=== PATIENT | male | born 1945 | race Caucasian/White ===

== ENCOUNTER → 2023-08-26 | Outpatient (CLI) | payer OTHER, SELFPAY ==
--- NOTE | 2023-08-26 06:52 | ECHOD_ITS ---
Reason For Study: AFIB Procedure This was a 2D Doppler, Color Flow transthoracic echocardiogram. Exam performed in department. Left Ventricle Normal LV size. Left ventricular systolic function is normal. The estimated ejection fraction is 55 %. No regional wall motion abnormalities noted. Right Ventricle Normal RV size. Normal systolic function. Atria Normal left atrium. Normal right atrium. Mitral Valve Normal mitral valve. Tricuspid Valve Normal tricuspid valve. Mild (1+) tricuspid valve insufficiency. Pulmonary artery systolic pressure is 35 mmHg. Aortic Valve Trisinus/trileaflet aortic valve. Mild (1+) aortic valve insufficiency. Pulmonic Valve Normal pulmonic valve. Great Vessels Normal aortic root. The pulmonary artery is normal size. Normal inferior vena cava. Pericardium/Pleural No pericardial effusion. MMode/2D Measurements & Calculations LVIDd: 4.1 cm IVSd: 1.1 cm Ao root diam: 3.7 cm LVIDs: 2.9 cm LVPWd: 1.3 cm RVDd: 3.9 cm FS: 29.2 % LAV(MOD-bp): 56.5 ml LVAd ap4: 20.6 cm2 SV(MOD-sp4): 25.7 ml LAV(MOD-bp) Indexed: 27.7 ml/m2 LVLd ap4: 7.8 cm LAV(MOD-sp2): 69.7 ml EDV(MOD-sp4): 46.9 ml LAV(MOD-sp4): 47.1 ml EDV(sp4-el): 46.4 ml LVAs ap4: 12.1 cm2 LVLs ap4: 5.8 cm ESV(MOD-sp4): 21.2 ml ESV(sp4-el): 21.4 ml EF(MOD-sp4): 54.7 % EF(sp4-el): 53.9 % SV(sp4-el): 25.0 ml LA A4 area: 19.4 cm2 LA dimension(2D): 4.3 cm RA A4 area: 22.0 cm2 TAPSE: 1.8 cm Doppler Measurements & Calculations MV E max charlie: 87.2 cm/sec Ao V2 max: 127.0 cm/sec LV V1 max: 110.3 cm/sec Ao max P.5 mmHg LV V1 max P.9 mmHg Ao V2 mean: 88.6 cm/sec LV V1 mean P.8 mmHg Ao mean P.6 mmHg LV V1 mean: 77.9 cm/sec Ao V2 VTI: 28.0 cm LV V1 VTI: 24.4 cm AV (velocity ratio): 0.87 PA V2 max: 111.1 cm/sec TR max charlie: 278.0 cm/sec PA V2 mean: 75.4 cm/sec TR max P.9 mmHg ECHO/Echo Complete Interpretation Summary Normal LV size. Left ventricular systolic function is normal. The estimated ejection fraction is 55 %. Mild (1+) aortic valve insufficiency. Mild (1+) tricuspid valve insufficiency. Pulmonary artery systolic pressure is 35 mmHg. Ordering Physician: Daren Magaña Referring Physician: Daren Magaña Performed By: Gabby Cabrera RCS
--- NOTE | 2023-08-26 14:52 | STRESSREP ---
Stress Test Report Pharmacologic myocardial perfusion stress test. 77-year-old male with a history of atrial fibrillation for preop evaluation Resting EKG demonstrates atrial fibrillation with a rate of 78 bpm. Resting blood pressure is 130/82 mmHg. 0.4 mg of regadenoson was infused per usual protocol followed by rapid intravenous saline flush injection. Continuous EKG monitoring was performed. The maximum heart rate was 105 bpm which was 85% of max impacted heart rate the maximum workload was 1 metabolic equivalent. At rest there were no ST or T wave changes noted to suggest ischemia and at peak infusion nonspecific ST changes were noted which did not meet the criteria for ischemia. No clinical angina is noted. The final blood pressure was 122/70 mmHg. Myocardial perfusion protocol. 11.8 mCi of technetium 99m sestamibi was injected at rest. 0.4 mg of regadenoson was infused per usual protocol. At peak infusion 34.5 mCi of technetium 99m sestamibi was injected stress images were obtained stress and rest images were reconstructed and compared in the short axis vertical long and horizontal long axis. Gated images were also obtained. Perfusion SPECT analysis: Review of the stress images demonstrate normal uptake of tracer noted in all areas of the myocardium. The resting images similar demonstrated normal uptake of tracer noted in all areas of the myocardium. No areas of reversibility are noted to suggest ischemia and no previous infarct is noted. Gated SPECT analysis: The gated ejection fraction is 60%. Conclusion: Normal pharmacologic myocardial perfusion stress test. Preserved ejection fraction.
== END | disposition home or self-care (01) ==
PROVIDERS: Referring Provider Internal Medicine Cardiovascular Disease; Visit Provider Internal Medicine Cardiovascular Disease
DX: Z01.810 Encounter for preprocedural cardiovascular examination (principal); I48.91 Unspecified atrial fibrillation; I48.92 Unspecified atrial flutter; I36.1 Nonrheumatic tricuspid (valve) insufficiency; I35.1 Nonrheumatic aortic (valve) insufficiency
CPT/HCPCS: 78452; 93017; 93306; A9500; A4216; J2785

== ENCOUNTER 2024-04-06 07:05 | Observation (INO) | payer OTHER, SELFPAY ==
[2024-03-17 09:56] LABS: Absolute Lymphocyte Count 1.78 X10^3/uL (0.83-4.51); Absolute Neutrophil Count 3.3 X10^3/uL (2.0-7.7); Basophil# 0.02 X10^3/uL; Basophil% 0.3 % (0-1); Eosinophil# 0.16 X10^3/uL; Eosinophils% 2.7 % (0-5); Hematocrit 43.6 % (40-54); Hemoglobin 14.3 g/dL (13.0-16.5); Lymphocyte # 1.78 X10^3/ul (0.83-4.51); Mean Corp Hgb Conc 32.8 g/dL (32-36); Mean Corpuscular Hgb 30.6 pg (27.0-32.0); Mean Corpuscular Volume 93.2 fL (80-94); Mean Platelet Vol. 10.5 fl (6.2-12.0); Monocyte# 0.67 X10^3/uL; Monocyte% 11.3 % (0-10); NRBC Flagged by Analyzer 0 % (0-5); Neutrophil % 55.5 % (47-70); Platelet Count 185 K/mm3 (150-450); RBC Distribution Width CV 12.8 % (11.6-14.6); RBC Distribution Width SD 43.8 fl (35.1-43.9); Red Blood Count 4.68 M/mm3 (4.6-6.2); White Blood Count 5.9 K/mm3 (4.4-11.0)
[2024-03-17 10:31] LABS: Albumin, Serum 3.6 g/dL (3.2-5.0); Anion Gap 3 (5-15); BUN 15 mg/dL (7-18); BUN/Creat Ratio 11.9 RATIO (10-20); Chloride 106 mmol/L (98-107); Creatinine, Serum 1.26 mg/dL (0.70-1.30); EST Glomerular Filtration Rate 59 mL/min (>60); Est Glom Filt Rate - Afr Amer 72 mL/min (>60); Glucose 99 mg/dL (74-106); Potassium 4.1 mmol/L (3.5-5.1); Sodium Level 138 mmol/L (136-145)
[2024-03-17 10:56] LABS: Magnesium 2.4 mg/dL (1.6-2.6)
--- NOTE | 2024-04-01 12:35 | PCM.HP.BLA ---
History and Physical History and Physical Patient Name: Ge Medina : 1945From:? DERIK CORREA PA-C DATE OF PRE-OPERATIVE EXAM: 04/01/2024 DATE OF SURGERY:? 04/06/2024 SCHEDULED PROCEDURE:? Direct anterior left total hip arthroplasty HISTORY OF PRESENT ILLNESS: Preoperative history and physical exam was performed on April 01, 2024.? This is a 78-year-old male who has had ongoing pain with his left hip since 2018.? Pain is located in the left groin and anterior part of his thigh.? Patient denies any numbness and tingling.? His pain has been intermittent.? Pain is increased with walking and going up and down stairs.? Patient has difficulty with activities of daily living including putting on his socks and shoes.? He has been using a cane.? Patient states stairs are challenging due to the pain.? He has difficulty getting in and out of cars.? He does have history of a previous femur fracture in the 1970s which initially was treated with delmer and bone grafting.? The hardware was removed that same year of surgery.? Patient has tried conservative measures including Tylenol and Advil with no relief.? 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 Cardiology recommended stopping the Eliquis 2 days prior to surgery.? He has medical history pertinent for atrial fibrillation, hypertension, hypercholesterolemia, prediabetes.? He denies past history of DVT or pulmonary embolism.? No recent chest pain, shortness of breath, fevers chills, or recent infections.? After failing conservative measures and discussing all treatment options was Dr. Colin Caro, the patient does wish to proceed with a direct anterior left total hip arthroplasty. REVIEW OF SYSTEMS: Review Of Systems: Constitutional: Denies change in appetite, fever and weight change. Cardiovasular: Reports irregular heartbeat, but denies chest pain and heart murmur. Respiratory: Denies cough, pneumonia, shortness of breath, tuberculosis and wheezing. Gastrointestinal: Denies constipation, diarrhea, heartburn, nausea, rectal itching, bloody stools and vomiting. Musculoskeletal: Reports gait disturbance, pain, trouble walking and weakness, but denies leg swelling. Skin: Denies Raynaud's, history of shingles and tattoo. Neurological: Denies ambulatory dysfunction, dizziness, numbness/tingling and tremor. Psychiatric: Denies anxiety, insomnia and stress. Hematologic/Lymphatic: Denies anemia, bleeding/bruising tendency and past transfusion. Reviewed and updated. PAST MEDICAL HISTORY: Advance Care Plan: No Advance Directives Effective Date: 10/16/2023 Past Medical History: Medical Problems: AFib, Arthritis, High Blood Pressure, Hypercholesterolemia prediabetes - history of lumbar degenerative disc disease Accidents: Fracture - LT FEMUR 1969 Surgical Hx: Cataracts - JACKLYN Open Reduction Internal Fixation left femur + hardware removal later - (1969) Anesthesia Complications: Demerol - Maybe Assistive Devices: Cane Reviewed and updated. SOCIAL HISTORY: Social History: Marital: .Occupation: Retired.Work Status: Retired.Hand Dominance: Right-handed. Personal Habits:? Cigarette Use: Former.Smokeless Tobacco: Never Used Smokeless Tobacco.E-Cigarette Use: Never used.Alcohol: Occasionally.Drug Use: Denies Use.Enjoy Exercising: Exercises 1-3 X/Week. Reviewed and updated. VITALS: Ht: 70.5 Wt: 186lb Wt k.370 BMI: 26.3 BP: 128/80 Pulse: 71 Resp: 17 T: 97.6 T: 36.4C Pain Level: 4 O2SatR: 100 ALLERGIES: Meperidine Demerol MEDICATIONS: Metoprolol Succinate ER 50 mg 1 by mouth every day, Amlodipine Besylate 5 mg 1 by mouth every day, Lisinopril 20 mg 1 by mouth every day, Rosuvastatin Calcium 10 mg on saturday, saturday, and saturday, Vitamin D (Cholecalciferol) 50 mcg (1999) 1 tab, 1x/day, Multivitamin? take one(1) tablet daily., Eliquis 5 mg twice a day PRE-OP EXAM: General appearance:NORMAL? Other: Eyes: Conjunctivae and lids: NORMAL? Pupils: ERR Ears, Nose, Mouth, and Throat: NORMAL? Other: Inspection of lips, teeth and gums: NORMAL?? Other: Neck: Examination of neck: no masses noted. Respiratory: Assessment of respiratory effort: NORMAL?? Other: ? Auscultation of lungs: clear to auscultation no wheezes, rhonchi or rales. Cardiovascular:? Auscultation of heart: Irregular irregular rhythm consistent with atrial fibrillation PHYSICAL EXAMINATION: On exam patient does walk with an antalgic gait with use of cane.? Patient's left hip is without erythema.? Tenderness to palpation over the anterior and lateral thigh.? He does complain of groin pain with range of motion.? Range of motion: 45 flexion with pain.? He does have 10 flexion contracture.? Internal rotation to neutral and external rotation 20.? Strength 3/5 left hip secondary to pain.? Sensation intact to light touch.? Leg lengths are equal. IMAGING STUDIES: Previous x-rays of the left hip reveal severe osteoarthritis with subchondral cyst formation with femoral head collapse and flattening of the femoral head.? Large marginal osteophytes appreciated.? Patient also has right hip joint space narrowing with severe osteoarthritis.? No lytic or blastic lesions. IMPRESSION: 1.? Severe left hip osteoarthritis 2.? Severe right hip osteoarthritis 3.? Hypertension 4.? Atrial fibrillation: Currently on Eliquis 5.? Hypercholesteremia 6.? Prediabetes 7.? Overweight with BMI 26.3 PLAN: Dr. Colin Caro did discuss and review with the patient all treatment options including surgical versus nonsurgical options.? Patient does wish to proceed with the above-stated procedure.? Potential risks, benefits, and complications of the procedure were discussed in detail including but not limited to , infection, nerve and blood vessel damage, persistent pain, numbness, tingling, paresthesias, blood clot, pulmonary embolism, and requirement for possible further surgery.? The patient expressed full understanding and has no further questions for the doctor.? Patient does agree to proceed with the above-stated procedure and has signed the surgery consent form. POST-OP MEDICATION PLAN: Pain Medications:? Postoperative pain regimen will be initiated by Dr. Colin Caro in the hospital.? Patient does have a walker that he will bring to the hospital.? Clearances have been obtained from primary care provider and cardiology. DVT Prophylaxis: Recommended patient stop the Eliquis 2 days prior to surgery.? Eliquis 5 mg twice daily will be resumed on postoperative day #1.? This will cover him for DVT prophylaxis. This dictation was created using voice recognition software. Phonetic and/or grammatical errors may exist. ___? I have re-examined the patient.? There are no clinical changes since date of exam. ___? See progress notes for changes. ___? Dictated on admission Date: ? Time: Signature:
[2024-04-06] VITALS (13 sets, daily range): BP systolic 101–134; BP diastolic 57–81; PULSE 65–119; RESP 14–18; TEMP 36.1–37; O2SAT 94–100; BMI 26.2
--- NOTE | 2024-04-06 07:05 | PRE.ANES_ITS ---
ASA Classification* ASA Classification ASA Classification: 3 Assessment & Plan Anesthesia* Anesthesia Assessment Anesthesia Assessment: Discussed sedation and/or anesthesia options, risks, benefits, and alternatives with patient/parents/legal guardian/POA. Questions invited. The patient/parents/legal guardian/POA seems to understand and agrees to proceed with anesthesia plan. Reviewed the physical assessment, medical history, allergy history and patient home medications list prior to surgery/procedure/anesthetic and documented any changes. Performed airway and anesthesia risk assessments. Anesthesia Type Anesthesia Type: General (Eliquis 60 hours ago) Anesthesia Focused Assessment* Airway Assessment Mouth opens: >3 cm Mallampati Score: II Focused Labs Anesthesia Preop lab: CBC WBC 5.9 K/mm3 (4.4-11.0) 03/17/24 09:27 RBC 4.68 M/mm3 (4.6-6.2) 03/17/24 09:27 Hgb 14.3 g/dL (13.0-16.5) 03/17/24 09:27 Hct 43.6 % (40-54) 03/17/24 09:27 Plt Count 185 K/mm3 (150-450) 03/17/24 09:27 CHEMISTRY Potassium 4.1 mmol/L (3.5-5.1) 03/17/24 09:27 Sodium 138 mmol/L (136-145) 03/17/24 09:27 Magnesium 2.4 mg/dL (1.6-2.6) 03/17/24 09:27 BUN 15 mg/dL (7-18) 03/17/24 09:27 Creatinine 1.26 mg/dL (0.70-1.30) 03/17/24 09:27 Glucose 99 mg/dL (74-106) 03/17/24 09:27 COAG Pre-Assessment Diagnosis/Proposed Procedure Planned Operative Procedure(s): ANTERIOR LEFT TOTAL HIP ARTHROPLASTY, ERAS Anesthesia History 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 When Was Last Pacemaker Check QUESTION #4 FULL TEXT: You/Your Family Experience fever (hyperthermia) with Anesthesia Last Oral Intake Last Oral intake: Last Oral Intake NPO since Meds taken in AM with sips of water? Meds patient instructed to take am of surgery PONV PONV - special warfare operator: PONV - special warfare operator Female No 03/12/24 10:28 HX of Motion Sickness Yes 03/12/24 10:28 HX of N/V After Surgery No 03/12/24 10:28 Non-Smoker Yes 03/12/24 10:28 Duration of Surgery greater Yes 03/12/24 10:28 than 60 minutes Number of Risk Factors 3 03/12/24 10:28 PONV Score Moderate Risk 03/12/24 10:28 Height & Weight Height & Weight: Anesthesia: Height & Weight Height 5 ft 11 in 11/14/23 08:55 Respiratory Assessment Respiratory Assessment - special warfare operator: Respiratory Tract Infection Hx - special warfare operator Hx Respiratory Tract Infection No 03/12/24 10:28 STOP Sleep Apnea STOP Sleep Apnea - special warfare operator: STOP Sleep Apnea - special warfare operator Hx Hypertension Yes: CONTROLLED ON MED 03/12/24 10:28 Hx Sleep Apnea No 03/12/24 10:28 CPAP BIPAP Do you snore loudly (louder No 03/12/24 10:28 than talking or can be heard Do you often feel tired/ No 03/12/24 10:28 fatigued/ sleepy during daytime? Has anyone observed you stop Yes 03/12/24 10:28 breathing during sleep? STOP Results Positive 03/12/24 10:28 QUESTION #5 FULL TEXT : Do you snore loudly (louder than talking or can be heard through closed doors)? 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 Specify any problems Hx of Preganancy in last 3 N/A 03/12/24 10:28 Months Nurse Filling Out Transfusion VCHRISTIN 03/12/24 10:28 & Questions: Date: 03/12/24 03/12/24 10:28 Time: 10:29 03/12/24 10:28 Patient unable to answer at this time (ie. confused, unrespo /Reproduction History /Reproductive History - special warfare operator: /Reproductive Hx- special warfare operator Hx Now Gestational Age (in weeks): EDC: Hx Hx Para Hx Section SAB Active Medications Active Medications: Current Medications Generic Name Dose Route Start Last Admin Trade Name Freq PRN Reason Stop Dose Admin Acetaminophen 1,000 mg 04/06/24 08:45 Acetaminophen 500 Mg Tablet PO 04/06/24 08:46 X1 ONE Celecoxib 400 mg 04/06/24 08:45 Celecoxib 200 Mg Capsule PO 04/06/24 08:46 X1 ONE Tranexamic Acid 1,000 mg/ 0 mg 04/06/24 08:45 Sodium Chloride 100 ml OPERA.SITE 04/06/24 08:46 X1 ONE Sodium Chloride 77.4 ml/ 0 ml 04/06/24 08:45 Ropivacaine 200 mg/ OPERA.SITE 04/06/24 08:46 Epinephrine HCl 0.6 mg/ X1 ONE Ketorolac Tromethamine 30 mg/ Morphine Sulfate 5 mg Dexamethasone Sodium Phosphate 10 mg 04/06/24 08:45 Dexamethasone 10 Mg/Ml Vial IV 04/06/24 08:46 X1 ONE Gabapentin 600 mg 04/06/24 08:45 Gabapentin 600 Mg Tablet PO 04/06/24 08:46 X1 ONE Cefazolin Sodium 2 gm/ N/A 20 mls @ 400 mls/hr 04/06/24 08:45 IV 04/06/24 08:47 PREOP ONE Lactated Ringer's 1,000 mls @ 75 mls/hr 04/06/24 08:45 IV 04/06/24 22:04 .[id number] MAYURI Magnesium Sulfate 1 gm/ 102 mls @ 408 mls/hr 04/06/24 08:45 Dextrose IV 04/06/24 08:59 X1 ONE Insulin Human Lispro 1 - 6 unit 04/06/24 08:45 Insulin Lispro 100 Unit/Ml Insuln.Pen SC Q4H PRN PRN BG>/= 180, SEE PROTOCOL Protocol PFSH Medical History Wears glasses Alcohol use Arthritis Former smoker History of pain when walking History of edema History of stress test Cardiology follow-up encounter History of atrial fibrillation Encounter for pre-operative cardiovascular clearance Osteoarthritis Essential (primary) hypertension Hyperlipidemia Ventricular bigeminy Prediabetes New onset atrial fibrillation NSVT (nonsustained ventricular tachycardia) Syncope Home Medications ?Medication ?Instructions ?Recorded ?Last Taken ?Type amlodipine 5 mg tablet 5 mg PO DAILY 07/01/23 Unknown History cholecalciferol (vitamin D3) 50 50 mcg PO DAILY 07/01/23 Unknown History mcg (2,000 unit) tablet lisinopril 20 mg tablet 20 mg PO DAILY 07/01/23 Unknown History multivitamin 1 tab PO DAILY 07/01/23 Unknown History rosuvastatin 10 mg tablet 10 mg PO MOWEFR 07/01/23 Unknown History apixaban 5 mg tablet (Eliquis) 5 mg PO BID Fax to [facility] 07/23/23 Unknown [facility] tabs metoprolol succinate 50 mg 50 mg PO DAILY Fax to [facility] 07/23/23 Unknown Rx tablet,extended release 24 hr [facility] tabs (Toprol XL) Allergy/AdvReac Type Severity Reaction Status Date / Time meperidine HCl (From Demerol) Allergy Severe Unknown Verified 03/12/24 10:11 Family History Brother CVA (cerebral vascular accident) Surgical History Hx of colonoscopy Hx of bilateral cataract extraction History of femur fracture Social History Smoking Status: Former smoker how long ago did patient quit smokin years alcohol intake: current alcohol intake frequency: 0-2 drinks per day Alcohol type: beer substance use type: does not use caffeine: Yes Type: coffee Number of servings: 5 Review of Systems (Anesthesia) ROS Narrative System reviewed and no additional complaints, except as documented.
--- NOTE | 2024-04-06 07:10 | RAD_ITS ---
STUDY: X-RAY - PELVIS AND LEFT HIP REASON FOR EXAM: Male, 78 years old. Post Op -- AP both hips on single leah/lateral of op hip PACU TECHNIQUE: 2 views of the pelvis and left hip. COMPARISON: None. FINDINGS: There is a non-specific bowel gas pattern. Normal visualized soft tissue structures. Normal bilateral iliac wings, sacroiliac joints and visualized sacrum. Normal bilateral superior and inferior pubic rami. Normal pubic symphysis. Normal bilateral ischial tuberosities. There is a new left hip arthroplasty in place. There is no periprosthetic fracture. There is surrounding soft tissue gas, compatible with recent surgery. There is moderate to severe degenerative arthrosis of the right hip joint. RAD/Hip Min 2 Views (Portable) IMPRESSION: New left hip arthroplasty, with no periprosthetic fracture. Moderate to severe degenerative arthrosis of the right hip joint. Electronically Signed: Armani Matias MD at 11:16 EST ,
[2024-04-06] MEDS: Lactated Ringers 1,000 ML 75 ML IV (07:39)
[2024-04-06] MEDS: Celecoxib 200 MG Capsule 400 MG PO (07:40)
[2024-04-06] MEDS: Magnesium 1 GM over 15 mins IV (07:40)
[2024-04-06] MEDS: Gabapentin 600 MG Tablet PO (07:41)
[2024-04-06] MEDS: Acetaminophen 500 MG Tablet 1000 MG PO ×2 (07:41→14:51)
[2024-04-06 08:27] LABS: Bedside Glucose 70 mg/dL (74-106)
[2024-04-06] MEDS: Cefazolin 2 GM in Syringe IV (08:34)
[2024-04-06] MEDS: dexAMETHasone 10 MG/ML Vial IV (08:40)
--- NOTE | 2024-04-06 08:45 | FEM._PTH ---
PATIENT: DOLLY CRUZ LOC: [facility]3 U#:[id number] AGE/SX: 78/M ROOM: [facility] [place] RE04/06/[address]: Dr. Colin Caro MD : 1945 BED: 1 DIS: 04/07/2024 SPEC #: [id number] RECD: 04/06/24 12:28 STATUS: JULIA BEARD #: [id number] GOLDY: 04/06/24 08:[address]: Colin Caro DEPT: SURGICAL PATHOLOGY RECD BY: Cuba Morrison ENTERED: 04/06/24 13:00 SP TYPE: FEM HEAD OTHR DR: MD Dr. Sherin Maciel, [facility] Tissues: Hip, NOS Procedures: Decalcification bone/plaque Surgery Specimen Level IV HEADER OPERATION: Anterior left total hip arthroplasty PRE-OP DIAGNOSIS: Severe left hip osteoarthritis TISSUE SUBMITTED: Left femoral head MICROSCOPIC DIAGNOSIS Bone and tissue of left hip, total hip resection: Severe degenerative joint disease. AM: 04/09/2024 MICROSCOPIC DESCRIPTION Slides are reviewed. GROSS DESCRIPTION Received is one container labeled with the patient's name and designated bone and soft tissue left hip. The specimen consists of a wright femoral head (with portion of femoral neck). The femoral head measures 6.5 x 5.5 x 5.0 cm . The articular surface displays prominent osteophyte formation, eburnation and bone erosion. Also present in the specimen container are multiple irregular fragments of bone reamings measuring in aggregate 9.0 x 7.0 x 1.5 cm. Chain Testing Machine Operator sections are submitted in two cassettes as follows: 1 - bone reamings, 2 - femoral head after decalcification. / AM. 04/06/2024 TC:5 [facility]: [id number]
--- NOTE | 2024-04-06 09:37 | RAD_ITS ---
STUDY: X-RAY - PELVIS AND LEFT HIP REASON FOR EXAM: Male, 78 years old. PAIN TECHNIQUE: 1 views of the pelvis and hip. COMPARISON: None. FINDINGS: 13 seconds of fluoroscopy of the left hip is utilized operating room during arthroplasty in 8 images are submitted for interpretation. . RAD/Hip 1 view with Pelvis IMPRESSION: Fluoroscopy during left hip arthroplasty. Electronically Signed: Uriel Guillory MD at 9:50 EST ,
--- NOTE | 2024-04-06 10:04 | PCM.OPRPT ---
Operative Report (Standard) Operative Information Date of Procedure: 04/13/24 Pre-Operative Diagnosis: Left hip primary osteoarthritis Post-Operative Diagnosis: Left hip primary osteoarthritis Surgery/Procedure Performed: Left direct anterior minimally invasive total replacement cleaner: Yes Cod Clerk: Omid Villafana Tasks completed by property management assistant: Other Additional assistant statistician?: No Type of Anesthesia: General RN Documented Start/Stop Times: Operation Date: 04/06/24 08:45 Case Time Into Pre-Op 04/06/24 06:48 Anesthesia Start 04/06/24 08:34 Into Room 04/06/24 08:34 Out of Pre-Op 04/06/24 08:34 Procedure Start 04/06/24 09:10 Procedure Start Time: 09:10 Procedure Stop Time: 11:00 Select all DRAINS/GRAFTS/IMPLANTS that apply: None Special Medications: 2 g Ancef, 1 g TXA at incision, 1 g TXA closure, 10 mg Decadron, joint cocktail (5 mg Duramorph, 30 mL of 0.5% Ropivicaine, 1000 units of epinephrine, 30 mg of Toradol) Estimated Blood Loss: 350 ml Fluids Replaced: 1500 mL crystalloid Specimen collected: Yes Description of specimen(s) removed: Bony cuts Description of surgery: Components used: 1. Insignia [place] femoral stem size 6 high offset 2. [place] trident 2 acetabular shell size 54 mm 3. [place] X3 polyethylene E 4. [place] Biolox delta 36mm, 7.5mm femoral head Brief history operative indications: 78 yo m who failed conservative measures for their hip osteoarthritis. X-rays were consistent with osteoarthritis including joint space narrowing, osteophyte formation and subchondral cysts. Total hip replacement was discussed with the patient with risks and benefits including but not limited to blood loss, DVTs, PEs, neurovascular damage, dislocation, general risks of anesthesia including loss of life. Patient demonstrated an understanding medical clearance is obtained the patient was consented for surgery. Procedure: On the date of procedure the patient's L hip was marked in the preoperative area. Patient was then taken back to the operating room where anesthesia assumed control of the C-spine and airway and administered anesthetic. Patient was transferred to the operating table and placed in the supine position. The hips were placed at the break of the bed and a sacral bump was placed. The L lower extremity was then prepped out in a sterile fashion using chlorhexidine while the surgeon scrubbed. The PA was vital in the positioning of the patient. Upon reentering the room the L lower extremity was draped in the standard orthopedic fashion and the incision was marked. A timeout was called and everyone agreed upon the side, the site, the procedure be performed, antibody given, and patient's identity. At this time incision was made through skin, subcutaneous tissue, and fat down to fascia. The fascia was then incised and the TFL was retracted laterally. A retractor was placed on the lateral border of the femoral neck. Attention was directed to the inferior portion of the approach and all crossing vessels were identified and appropriately coagulated. A retractor was then placed on the medial portion of the femoral neck. The anterior capsule was then cleared of all soft tissue and then H shaped capsulotomy was made. The retractors were then placed inside the capsule. The femoral neck was identified and a cleanup cut was made. At this time a power corkscrew was used to remove the femoral head. Attention was then turned toward the acetabulum where the soft tissues were appropriately retracted and the acetabulum was sequentially reamed to 54 mm. A 54 mm cup was then selected and impacted into place. Acetabular liner was impacted into place and locking mechanism was verified. The position of the acetabular cup was then verified under live fluoroscopy. Attention was then turned to the femur. Soft tissue releases on the medial and lateral femoral neck were appropriately done, the leg was externally rotated and lateralized. A Summers retractor was placed medially and proximally to the greater trochanter this allowed appropriate visualization and exposure of the femoral canal. Rongeour was then used to remove excess lateral bone. A canal finder and entry broach were used to open the proximal canal. Once we verified we were down the femoral canal we subsequently broached up to a size 6 femur. The appropriate neck was placed in the previously selected head was trialed with a 7.5 mm neck. Traction was pulled and the hip was reduced with internal rotation. Once it was appropriately reduced and stability was checked. There was minimal shuck, equal leg lengths and appropriate stability with hyperextension and external rotation as well as with 90? flexion and internal rotation. Fluoroscopy was then also used to verify the position of the components and leg lengths using the contralateral side for comparison. The trial components were then dislocated the proximal femur was again exposed and the components were removed from the wound. The final components were verified and opened. The wound was copiously irrigated out with normal saline. The acetabulum was checked for any residual debris. The final components were placed and impacted. Traction and internal rotation were again used to reduce the hip. After adequate reduction the hip remained stable with appropriate leg lengths. The final components were once again checked with live fluoroscopy and were found to be satisfactory. The wound was then copiously irrigated with normal saline once more, and hemostasis was obtained. Closure was then done using #1 Vicryl runner to close the fascia. A 2-0 vicryl interuppted sutures were used to close the subcutaneous skin. A 3-0 Monocryl and Steri-Strips were used for final skin closure. A Silverlon dressing was placed. Patient was awakened by anesthesia and transferred to the [facility]. Patient was then transferred to the PACU for recovery. Postoperative plan: Patient will get 24 hours postop antibiotics. Patient will get in-house physical therapy and will be weight-bear as tolerated. Patient will follow up in office in 2 weeks for a wound check and x-rays. Patient will resume Eliquis 5 mg p.o. twice daily starting tomorrow morning which should be sufficient for DVT prophylaxis During the course of the procedure the physician card checker (PE) played a vital role. Their intimate knowledge of my steps in the procedure aided in safe and expedient completion of the procedure. the PE played a vital rolls in positioning particularly in obtaining the appropriate position at the break of the bed and placing the sacral bump. The PE was also vital in the retraction of soft tissues during the exposure and especially the femoral work as this is a vital part of the procedure to prevent neurovascular damage, fractures, cortical breaches and other complications. The PE was also vital and protecting soft tissues during times of bony cuts and reaming. He also played a vital role in closure with my direct supervision. The PE was also important during reduction and dislocation of the joint and trials intraoperatively. There was not another available equivocally skilled or competent set of hands available to assist at the hospital. Surgical Findings: Severe stage IV osteoarthritis Complications Complications: No Admit VTE Documentation VTE Present on Admission: No VTE Mechan Device Prophylaxis: SCD's and Thigh High CURTIS Hose VTE Pharm Prophylaxis ordered?: Yes
[2024-04-06] MEDS: JPS (Morphine 10mg/ml) OPERA.SITE (10:08)
[2024-04-06] MEDS: TRANEXAMIC ACID 2,000 MG, 0.9% Normal Saline (100mL Bag) 100 ML OPERA.SITE (10:09)
--- NOTE | 2024-04-06 10:45 | PCM.POST.ANE ---
Anesthesia: Postop Eval I Current Vital Signs Temperature: 97 F Pulse Rate: 114 Blood Pressure: 126/66 Respiratory Rate: 18 Pulse Ox: 96 Assessment Airway patent: Yes Spontaneous unlabored respirations: Yes nausea: No Vomiting: No Anesthesia Complication: No Fluid Hydration Crystalloid volume administer (ml): 1,500 Total IV fluid infused: 1,500 Progress Note Anesthesia document: Postop Eval 1 completed: Yes
[2024-04-06] MEDS: Famotidine 20 MG Tablet PO (14:51)
[2024-04-06] MEDS: Ondansetron 4 MG/2 ML Vial IV (14:58)
[2024-04-06] MEDS: 0.9% Saline Lock 10 ML Syringe IV (14:59)
[2024-04-06] MEDS: Cefazolin 1 GM/50 ML BAG IV (16:43)
[2024-04-06] MEDS: Aspirin 81 MG TAB.CHEW PO (16:43)
--- NOTE | 2024-04-06 17:00 | NURSING ---
Pt had not voided. Bladder scanned for 558cc. Urinal given and pt was able to then void 250cc. This RN then bladder scanned post void and obtained 271cc. Will continue to monitor.
--- NOTE | 2024-04-06 17:47 | PCM.PN.HOSP ---
Subjective Subjective 78-year-old male presented to the hospital for an elective left hip arthroplasty for osteoarthritis. Doing well postoperatively, pain is controlled he did have some nausea. Continue to encourage p.o. intake Objective Data Objective Data Vital Signs: Vital Signs Temp Pulse Resp BP Pulse Ox O2 Del Method O2 Flow Rate 98.0 F 65 18 106/74 97 Room Air 4 04/06/24 15:59 04/06/24 15:59 04/06/24 15:59 04/06/24 15:59 04/06/24 15:59 04/06/24 17:30 04/06/24 11:30 Oxygen Flow Rate (L/min) 4 Oxygen Delivery Method Room Air Weight: 188 lb 7.924 oz Body Mass Index (BMI) 26.2 Intake & Output: Intake and Output for Last 24 Hours 04/05/24 04/06/24 04/07/24 03:59 03:59 03:59 Intake Total 172 / 172 Balance 172 / 172 Lab / Micro Data 04/07/24 07:13 04/07/24 07:13 Labs: Laboratory Results - last 24 hr 04/06/24 07:31: POC Glucose 70 L Micro: Microbiology 03/17/24 09:27 Swab (Method) Nasal Screen MRSA/MSSA - Final Radiography Diagnostic Testing: Radiology Impression Hip X-Ray 04/06/24 07:10 IMPRESSION: New left hip arthroplasty, with no periprosthetic fracture. Moderate to severe degenerative arthrosis of the right hip joint. Electronically Signed: Armani Matias MD at 11:16 EST Reading Location ID and State: [facility] / [place] , Service support , Physical Exam Narrative General: Alert, Oriented x3, Cooperative, No apparent distress HEENT: Atraumatic, PERRLA, EOMI, Normocephalic Oral: Moist Mucosa Neck: Supple, No JVD Lungs: Clear to auscultation, Normal air movement, No rhonchi, No wheeze, No rales Cardiovascular: Regular rate, Regular Rhythm, Normal S1, Normal S2, No murmurs Abdomen: Soft, Non Tender, Non-Distended, No Hepato-splenomegaly Extremities: No edema, Capillary Refill Less than 3 Seconds Skin: Incision CDI Musculoskeletal: Minimal tenderness to Palpation of left hip Neurological: No focal neurological deficits, Motor Exam 5/5 strength throughout, Sensory exam intact to light touch and pain Psych/Mental Status: Normal Affect, Appropriate Assessment & Plan Assessment/Plan (1) S/P total left hip arthroplasty: PLAN: Plan 1. Left total hip arthroplasty due to osteoarthritis on 04/06/2024 ? Pain management per primary ? PT/OT ? Will recheck a BMP in the morning, if creatinine is a little bit elevated which can happen after surgery with dehydration especially with the IV fluid shortage will likely hold his lisinopril for a day or 2 after discharge 2. Essential HTN/HLD/A-fib ? Continue with his home blood pressure medications ? Blood pressures are stable ? Continue with Crestor ? Will continue with Eliquis when allowed by orthopedic surgery DVT: Eliquis Charges/Coding Visit Charges Office Visits / Consults: [id number] OV L3 New 30min
--- NOTE | 2024-04-06 17:48 | POSTOPAN2_ITS ---
Anesthesia Postop Eval I Sum Postop Eval Completion status Anesthesia document: Postop Eval 1 completed: Yes Anesthesia Postop Eval I Summary Anesthesia Postop Eval I Summary: Anesthesia Postop Eval I: Assessment Summary Airway patent Yes 04/06/24 10:46 SYNTHETIC STAPLE [email or web address] Spontaneous unlabored Yes 04/06/24 10:46 SYNTHETIC STAPLE EXTRUDER.CSIR respirations Mental status nausea No 04/06/24 10:46 SYNTHETIC STAPLE EXTRUDER.CSIR Vomiting No 04/06/24 10:46 SYNTHETIC STAPLE EXTRUDER.CSIR Anesthesia Postop Eval I: Fluid Summary Crystalloid volume administer 1,500 04/06/24 10:46 SYNTHETIC STAPLE EXTRUDER.CSIR (ml) Colloids volume administered ( ml) Blood Product volume administered (ml) Total IV fluid infused 1,500 04/06/24 10:46 SYNTHETIC STAPLE EXTRUDER.CSIR Anesthesia Postop Eval I: Summary Notes Anesthesia Complication No 04/06/24 10:46 SYNTHETIC STAPLE EXTRUDER.CSIR Anesthesia Complication Comment: Post-operative progress note Anesthesia: Postop Eval II Evaluation Mental status: Awake Pain Level: 2 nausea: No Vomiting: No
--- NOTE | 2024-04-06 17:48 | PCM.POSTANE2 ---
Anesthesia Postop Eval I Sum Postop Eval Completion status Anesthesia document: Postop Eval 1 completed: Yes Anesthesia Postop Eval I Summary Anesthesia Postop Eval I Summary: Anesthesia Postop Eval I: Assessment Summary Airway patent Yes 04/06/24 10:46 PROFESSOR OF ART HISTORY.CSIR Spontaneous unlabored Yes 04/06/24 10:46 PROFESSOR OF ART HISTORY.CSIR respirations Mental status nausea No 04/06/24 10:46 PROFESSOR OF ART HISTORY.CSIR Vomiting No 04/06/24 10:46 PROFESSOR OF ART HISTORY.CSIR Anesthesia Postop Eval I: Fluid Summary Crystalloid volume administer 1,500 04/06/24 10:46 PROFESSOR OF ART HISTORY.CSIR (ml) Colloids volume administered ( ml) Blood Product volume administered (ml) Total IV fluid infused 1,500 04/06/24 10:46 PROFESSOR OF ART HISTORY.CSIR Anesthesia Postop Eval I: Summary Notes Anesthesia Complication No 04/06/24 10:46 PROFESSOR OF ART HISTORY.CSIR Anesthesia Complication Comment: Post-operative progress note Anesthesia: Postop Eval II Evaluation Mental status: Awake Pain Level: 2 nausea: No Vomiting: No
[2024-04-06] MEDS: 0.9% Normal Saline (500mL Bag) 500 ML 15 ML IV (20:05)
[2024-04-06] MEDS: Atorvastatin Calcium 20 MG Tablet PO (21:59)
[2024-04-06] MEDS: Senna/Docusate Sodium 1 Tablet 2 TABLET PO (21:59)
[2024-04-06] MEDS: Cholecalciferol (VIT D3) 25 MCG TABLET (1,000 UNITS) 50 MCG PO (21:59)
[2024-04-07] VITALS: BP 107/64; PULSE 88; RESP 18; TEMP 36.6; O2SAT 96
[2024-04-07] MEDS: Cefazolin 1 GM/50 ML BAG IV (00:05)
[2024-04-07] MEDS: Acetaminophen 500 MG Tablet 1000 MG PO ×2 (00:05→06:29)
[2024-04-07 04:08] VITALS: BP 119/74; PULSE 98; RESP 18; TEMP 36.6; O2SAT 96
[2024-04-07] MEDS: APIXABAN 5 MG TABLET PO (06:30)
--- NOTE | 2024-04-07 07:05 | PN.ORTHO_ITS ---
Subjective Subjective The patient was sitting in bed upon examination. Patient did have some dizziness and nausea yesterday. Patient denies any chest pain, shortness of breath, dizziness, lightheadedness, nausea or vomiting, or calf pain. All his symptoms yesterday have resolved last night at 8:00 PM. Pain is controlled on medications. No adverse overnight events. Patient has been up and urinated. Patient has no significant complaints this morning. Objective Data Objective Data Vital Signs: Vital Signs Temp Pulse Resp BP Pulse Ox O2 Del Method O2 Flow Rate 97.8 F 98 18 119/74 96 Room Air 4 04/07/24 04:08 04/07/24 04:08 04/07/24 04:08 04/07/24 04:08 04/07/24 04:08 04/07/24 04:08 04/06/24 11:30 Oxygen Flow Rate (L/min) 4 Oxygen Delivery Method Room Air Weight: 85.5 kg Body Mass Index (BMI) 26.2 Intake & Output: Intake and Output for Last 24 Hours 04/05/24 04/06/24 04/07/24 23:59 23:59 23:59 Intake Total 1412 / 1412 650 / 650 Output Total 250 / 250 600 / 600 Balance 1162 / 1162 50 / 50 Lab / Micro Data 03/17/24 09:27 03/17/24 09:27 Labs: Laboratory Results - last 24 hr 04/06/24 07:31: POC Glucose 70 L Micro: Microbiology 03/17/24 09:27 Swab (Method) Nasal Screen MRSA/MSSA - Final Radiography Diagnostic Testing: Radiology Impression Hip X-Ray 04/06/24 07:10 IMPRESSION: New left hip arthroplasty, with no periprosthetic fracture. Moderate to severe degenerative arthrosis of the right hip joint. Electronically Signed: Armani Matias MD at 11:16 EST , Physical Exam Narrative Vital signs stable and afebrile. Left thigh is soft and supple SCDs are in place bilaterally however there are no CURTIS hose bilaterally. Order has been placed for thigh-high CURTIS hose bilaterally Patient is able to plantarflex and dorsiflex actively. Sensation is intact to light touch to saphenous, sural, superficial and deep peroneal, and tibial distribution. Dressing is clean dry and intact. Negative Homans bilaterally, negative signs and symptoms of DVT. Const alert, oriented x3 and no apparent distress Assessment & Plan Assessment/Plan (1) S/P total left hip arthroplasty: PLAN: 1. S/P direct anterior left total hip arthroplasty POD #1 2. Continue Pain Medications: Tylenol and oxycodone. We are avoiding nonsteroidal anti-inflammatories due to anticoagulation for atrial fibrillation 3. DVT Prophylaxis: Patient will resume his Eliquis today 5 mg twice daily for treatment of atrial fibrillation. This will cover him for DVT prophylaxis. Patient denies past history of DVT or pulmonary embolism 4. PT/OT: Weightbearing as tolerated with walker. Follow anterior hip precautions 5. H & H: Patient has not had his blood drawn this morning, asymptomatic. Vitals are stable and he denies any dizziness or lightheadedness. Will call back in for lab results and discuss with nurse prior to probable discharge today 6. Encouraged Incentive Spirometry 7. Patient is aware of postoperative constipation that can occur from 1-3 days postoperatively. Will continue with senna 2 tablets twice daily until first bowel movement. Patient was advised if not having a bowel movement after day 3 she is to contact orthopedics so appropriate change can be made. Patient voiced understanding. 8. Continue postoperative medical treatment per medicine 9. Disposition: Plan will be for discharge home today as long as patient remains medically stable, tolerates therapy, pain is adequately controlled, and labs are stable. I will contact the nurse later this morning to discuss lab results. Patient would like his medications E scribed to [facility]. He has outpatient physical therapy established. Patient will contact our office with any concerns or questions upon discharge. We went over medications and dressing in detail today. I have reviewed the [place] Automated Rx Reporting System (OARRS) report for this patient for refill pattern and other prescriber involvement as part of the appropriate surveillance for the provision of acute and chronic controlled medications. The report was requested and reviewed on the date of this entry and was considered in the prescribing process. This dictation was created using voice recognition software. Phonetic and/or grammatical errors may exist.
--- NOTE | 2024-04-07 07:10 | DCINST_ITS ---
Discharge Instructions Diet Discharge Diet: No restrictions
--- NOTE | 2024-04-07 07:10 | PCM.DC ---
Discharge Instructions Diet Discharge Diet: No restrictions DC O2, CPAP, BIPAP needs Additional Home O2 Discharge instructions: No Dressing / Incision Discharge Activity: May Not Drive (Okay to consider driving once you are able to walk 100 feet with use of cane and no longer using narcotics) May shower in (days): 1 (only if incision is dry and without drainage. Do NOT soak/submerge in tub/pool/reid/stream/hot tub.)) Ice area for (Minutes): 20 (Every 1-2 hours [address] barrier between ice and skin.) Weight Bearing Status: Weight bearing as tolerated Keep extremity elevated above heart level: Operative Extremity Additional Activity Instructions:: Follow [facility] Post-op Instructions. Once postoperative dressing has been removed only use gentle soap and water over the incision. Do not use any ointments, Neosporin, salves, alcohol pads over the incision for 6 weeks postoperatively. Do not submerge underwater for 6 weeks postoperatively. Wear elastic stockings for 2 weeks. Do NOT use alcohol with narcotic pain medication. Do NOT make important decisions while taking narcotic medication. If you have problems with taking your medication (rash, itching, nausea, etc.) call the office at once. Dressing / Incision Call your doctor if your incision/area has: Continuous Slow Oozing, Sudden Increased Bleeding, Increased Pain/ Swelling, Increased Redness and Foul Smelling Discharge Call your doctor if you observe: Fever of 101 or Higher, Shortness of breath, Chest pain, Calf discomfort and Uncontrolled pain Remove Dressing in: 4 days (Okay to remove dressing on April 11, 2024) Additional Dressing/Incision Instructions:: Follow [facility] Post-op Instructions. Once postoperative dressing has been removed, only use gentle soap and water over the incision. Do not use any ointments, Neosporin, salves, alcohol pads over the incision for 6 weeks postoperatively. Do not submerge underwater for 6 weeks postoperatively. Continue with CURTIS hose/elastic stockings for 2 weeks postoperatively. May remove at nighttime but needs to be placed back on the leg during the day. Do NOT use alcohol with narcotic pain medication. Do NOT make important decisions while taking narcotic medication. If you have problems with taking your medication (rash, itching, nausea, etc.) call the office at once. Follow Up Care Test Results: Test results from this visit will be discussed in further detail at your follow-up appointment, if applicable. Discharge Plan Admission Admit Date/Time: 04/06/24 07:05 Attending Provider: Colin Caro Primary Care Provider: [facility],[place] Consulting Providers: Rashad Shields; Chris Coronado Discharge Orders/Prescriptions Prescriptions: New acetaminophen 500 mg Tablet 1,000 mg PO Q8H 14 Days Qty: 84 0RF Rx Instructions: Do not take more than 3000 mg Tylenol in a 24-hour period. famotidine 20 mg Tablet 20 mg PO DAILY 14 Days Qty: 14 0RF oxycodone 5 mg Tablet 5 - 10 mg PO Q4H PRN PRN (Reason: as needed for pain) 7 Days Qty: 36 0RF sennosides-docusate sodium [Stimulant Laxative Plus] 8.6-50 mg Tablet 2 tab PO BID 3 Days Qty: 12 0RF Rx Instructions: Take until first bowel movement, then as needed Continued amlodipine 5 mg tablet 5 mg PO DAILY lisinopril 20 mg tablet 20 mg PO DAILY rosuvastatin 10 mg tablet 10 mg PO MOWEFR cholecalciferol (vitamin D3) 50 mcg (2,000 unit) tablet 50 mcg PO DAILY multivitamin Tablet 1 tab PO DAILY Eliquis 5 mg tablet 5 mg PO BID Qty: 180 3RF Patient Comments: DR. CARO WILL ADVISE RE:STOPPING PREOP metoprolol succinate [Toprol XL] 50 mg tablet extended release 24 hr 50 mg PO DAILY Qty: 180 3RF Referrals / Follow Up: Physical,Therapy [Other] - 04/09/24 1:30 pm Cyndy Murillo PA [Med Staff - Adv Practice Prof] - 04/20/24 3:15 pm [facility] [Primary Care Provider] - Disposition Disposition (needs filled in before D/C Order can be placed): Home, Self Care
[2024-04-07 07:30] LABS: Hematocrit 31.4 % (40-54); Hemoglobin 10.5 g/dL (13.0-16.5); Mean Corp Hgb Conc 33.4 g/dL (32-36); Mean Corpuscular Hgb 30.7 pg (27.0-32.0); Mean Corpuscular Volume 91.8 fL (80-94); Mean Platelet Vol. 10.6 fl (6.2-12.0); Platelet Count 164 K/mm3 (150-450); RBC Distribution Width CV 12.7 % (11.6-14.6); RBC Distribution Width SD 42.1 fl (35.1-43.9); Red Blood Count 3.42 M/mm3 (4.6-6.2); White Blood Count 14.6 K/mm3 (4.4-11.0)
[2024-04-07 07:43] VITALS: BP 119/78; PULSE 93; RESP 17; TEMP 37.1; O2SAT 98
[2024-04-07 07:49] VITALS: O2SAT 98
[2024-04-07 08:04] LABS: Anion Gap 4 (5-15); BUN 25 mg/dL (7-18); BUN/Creat Ratio 18.2 RATIO (10-20); Calcium,Total 8.3 mg/dL (8.5-10.1); Chloride 104 mmol/L (98-107); Creatinine, Serum 1.37 mg/dL (0.70-1.30); EST Glomerular Filtration Rate 54 mL/min (>60); Est Glom Filt Rate - Afr Amer 65 mL/min (>60); Estimated Creatinine Clearance 48.86 ml/min; Glucose 123 mg/dL (74-106); Potassium 4.8 mmol/L (3.5-5.1); Sodium Level 134 mmol/L (136-145)
[2024-04-07] MEDS: Aspirin 81 MG TAB.CHEW PO (08:21)
[2024-04-07] MEDS: Multivitamins,Therapeutic Tablet 1 TABLET PO (08:22)
--- NOTE | 2024-04-07 10:17 | PHA.DC.MC.R ---
Pharmacy [facility] has performed discharge medication reconciliation and counseling for this patient. The patient's discharge medication list was reviewed for discrepancies and discrepancies were resolved. The patient was counseled on the following discharge medications and changes in medications for homegoing were reviewed. The Reason for Use, instructions for use, and potential side effects were reviewed for all new medications. The patient's questions regarding all of their medications were answered. 1. Acetaminophen 1000 mg Q8H 2. Famotidine 20 mg PO daily 3. Senna/docusate 2 tablets PO BID 4. Oxycodone 5-10 mg Q4H PRN pain The patient was able to verbally demonstrate an understanding of their discharge medications. Medications at Discharge Home Medications amlodipine 5 mg tablet 5 mg PO DAILY 07/01/23 cholecalciferol (vitamin D3) 50 mcg (2,000 unit) tablet 50 mcg PO DAILY 07/01/23 lisinopril 20 mg tablet 20 mg PO DAILY 07/01/23 multivitamin 1 tab PO DAILY 07/01/23 rosuvastatin 10 mg tablet 10 mg PO MOWEFR 07/01/23 apixaban 5 mg tablet (Eliquis) 5 mg PO BID Fax to [id number] tabs 07/23/23 metoprolol succinate 50 mg tablet,extended release 24 hr (Toprol XL) 50 mg PO DAILY Fax to [id number] tabs 07/23/23 acetaminophen 500 mg tablet 1,000 mg (2 x 500 mg) PO Q8H 14 days #84 tabs 04/07/24 famotidine 20 mg tablet 20 mg PO DAILY 14 days #14 tabs 04/07/24 oxycodone 5 mg tablet 5 - 10 mg (1 - 2 x 5 mg) PO Q4H PRN PRN as needed for pain 7 days #36 tabs 04/07/24 sennosides 8.6 mg-docusate sodium 50 mg tablet (Stimulant Laxative Plus) 2 tab PO BID 3 days #12 tabs 04/07/24
--- NOTE | 2024-04-07 10:36 | CASEMGMT ---
ISIDRO LAL Assessment Face to Face with patient for initial transition planning/care coordination assessment. ISIDRO LAL introduced self and role at [facility], pt voices understanding. Pt is A&Ox4 and is resting comfortably in bed and is calm. Care providers, pharmacy, and demographics verified. Admitting dx: Lt total Hip LACE Strata: 1 PCP: MARGOT in [place] Specialists: Vania (Ortho), ERICA Preferred Pharmacy: [facility] [place]: [place] LNOK: Esthela (W), Ant (Son) Living Arrangements: Pt lives with his in a 2 story home with a FFSU and 2 steps to enter in total ADLs/IADLs: Reports ind at baseline Transportation: Self, DME: Pt has his personal FWW and Cane in the room. Pt also has toilet side rails, shower chair, and grab bars HHC/SNF: denies history or needs Pt?s goal: Regain strength and return home Plan: Home with OP Tx. Pt reports that he is already established at [facility] and that his first appt is . Pt states that he feels safe with this plan and denies further questions or concerns at this time. Ashanti Glass RN, CM
== END 2024-04-07 11:36 | disposition home or self-care (01) ==
LOC: SDC 11:38 → MS3 11:39
PROVIDERS: Anesthesiology; Admitting Provider Specialist; Referring Provider Specialist; Visit Provider Specialist
PROC: (CPT 27284; principal; 2024-04-06 08:20)
DX: M16.0 Bilateral primary osteoarthritis of hip (principal); I48.91 Unspecified atrial fibrillation; Z87.891 Personal history of nicotine dependence; E78.00 Pure hypercholesterolemia, unspecified; I10 Essential (primary) hypertension; M51.369 Other intervertebral disc degeneration, lumbar region without mention of lumbar back pain or lower extremity pain; R73.03 Prediabetes; Z79.899 Other long term (current) drug therapy; Z79.01 Long term (current) use of anticoagulants
CPT/HCPCS: 27130; 01214; 36415; 73501; 73502; 76000; 80048; 82040; 82962; 83735; 85025; 85027; 87081; 88305; 88311; 94668; 96365; 96366; 96375; 97110; 97162; 97166; 97530; 99221; 99252; C1776; A4216; G0378; G0463; J2405; J3475

== ENCOUNTER → 2024-12-29 | Outpatient (CLI) | payer OTHER, SELFPAY ==
[2024-12-29 14:13] LABS: Hematocrit 46.2 % (40-54); Hemoglobin 15.5 g/dL (13.0-16.5); Immature Granulocytes Count 0.030 X10^3/uL (0.0-0.0); Mean Corp Hgb Conc 33.5 g/dL (32-36); Mean Corpuscular Volume 91.8 fL (80-94); Mean Platelet Vol. 10.3 fl (6.2-12.0); NRBC Flagged by Analyzer 0 % (0-5); Platelet Count 239 K/mm3 (150-450); RBC Distribution Width CV 12.7 % (11.6-14.6); RBC Distribution Width SD 42.9 fl (35.1-43.9); Red Blood Count 5.03 M/mm3 (4.6-6.2); White Blood Count 9.0 K/mm3 (4.4-11.0)
[2024-12-29 15:11] LABS: Magnesium 2.3 mg/dL (1.5-2.2)
[2024-12-29 15:26] LABS: Anion Gap 11 (5-15); BUN 18 mg/dL (4-19); BUN/Creat Ratio 14.0 RATIO (10-20); Calcium,Total 9.3 mg/dL (7.6-11.0); Carbon Dioxide 23.9 mmol/L (21.0-32.0); Chloride 103 mmol/L (98-108); Glucose 87 mg/dL (70-99); Potassium 4.5 mmol/L (3.3-5.1)
--- OUTSIDE RECORDS SUMMARY | 2024-12-29 22:54 | XMS RPT_ITS | CCD ---
Author Organization [facility] Inform ion [facility] Care Team Providers Care Lot Technician Name Role Phone [facility] Doctor, Out of Primary Care Provider Unasuad thomson [facility] Doctor, Out of Referring Provider UnavailDr. Daren Grove Attending Provider [phone] [facility] Primary Care Provider Unavailcornelia Alvarado WARDROBE IMAGE CONSULTANT, MELVIN Murillo Attending Provider Rashad Shields Consulting Unavailable [facility] [place] [facility] Unavailable Colin Sifuentes Referring Unavailable Colin Sifuentes Attending Unavailable Colin Sifuentes Admitting Unavailable Chris Coronado Consulting Unavailable Daren Magaña Referring Unavailable Daren Magaña Attending [facility]available [facility] [place] [facility] Unavailable [place] Doctor, Out of Referring Unavailable Colin Lemon NP Attending [place] [facility] [place] [facility] Unavailable Lidia Alvarado NP Attending [facility] [facility] [place] [facility] Unavailable Daren Magaña Attending Unavailable [facility], [place] Primary Care Unavailable Lidia Alvarado NP Attending Unavailable [facility], [place] Primary Care Unavailable Rashad Shields Consulting Unavailable Chris Coronado Attending Unavailable Colin Sifuentes Referring Unavailable Colin Sifuentes Admitting Unavailable [facility] [place] [facility] Unavailable Chris Coronado Consulting Unavailable Colin Sifuentes Consulting Unavailable [facility] Doctor, Out of Referring Unavailable [facility] Doctor, Out of Primary Care Unavailable Daren Magaña Attending Unavailable Colin Lemon NP [facility] Referring Provider Unavailable Jonathan Perez Attending Provider Allergies Allergy Classification Reported Allergen(s) Allergy Type Date of Onset Reaction(s) Facility (1 source) Meperidine Drug Allergy 05-19-2024 [facility] Repository Medications Current Medications Medication Drug Class(es) Dates Sig (Normalized) Sig (Original) acetaminophen 500 mg oral tablet (2 sources) Start: 04-07-2024 End: 05-19-2024 Acetaminophen 500 mg tablet Active 1000 mg PO Q8H as needed May 19, 2024 10:28am Do not take more than 3000 mg Tylenol in a 24-hour period. amLODIPine 5 mg oral tablet (2 sources) Dihydropyridine Calcium Channel Alex Start: 07-01-2023 take 1 tablet by mouth once daily Amlodipine 5 mg tablet Active 5 mg PO DAILY July 01, 2023 1:00am apixaban 5 mg oral tablet (4 sources) Factor Xa Inhibitor Start: 07-19-2023 End: 07-23-2023 take 1 tablet by mouth twice daily Apixaban (Eliquis) 5 mg tablet Active 5 mg PO TWICE A DAY 180 3 July 23, 2023 1:17pm Fax to [facility] cholecalciferol 0.05 mg oral tablet (2 sources) Vitamin D Start: 07-01-2023 take 1 tablet by mouth once daily Cholecalciferol (Vitamin D3) 50 mcg (2,000 unit) tablet Active 50 ug PO DAILY July 01, 2023 1:00am docusate sodium 50 mg / sennosides, jail 8.6 mg oral tablet (1 source) Start: 04-07-2024 Sennosides-Docusate Sodium (Stimulant Laxative Plus) 8.6-50 mg Tablet Active 2 {tbl} PO TWICE A DAY 12 3 0 April 07, 2024 1:00am Take until first bowel movement, then as needed lisinopril 20 mg oral tablet (4 sources) Angiotensin Converting Enzyme Inhibitor Start: 07-01-2023 take 1 tablet by mouth once daily Lisinopril 20 mg tablet Active 20 mg PO DAILY July 01, 2023 1:00am Start: 08-02-2013 End: 07-01-2023 take 1 mg by mouth once daily Lisinopril 10 MG tablet Discontinued mg PO DAILY August 02, 2013 12:00am July 01, 2023 9:34am Start: 08-02-2013 End: 07-01-2023 take 1 mg by mouth once daily Lisinopril Discontinued MG PO DAILY August 02, 2013 12:00am July 01, 2023 9:34am 24 hr metoprolol succinate 50 mg extended release oral tablet (5 sources) beta-Adrenergic Alex Start: 07-19-2023 End: 09-28-2024 take 1 tablet by mouth once daily Metoprolol Succinate (Toprol Xl) 50 mg tablet extended release 24 hr Active 50 mg PO DAILY 90 3 September 28, 2024 12:46pm Fax to [facility] Multivitamin preparation (1 source) Start: 07-01-2023 take 1 tablet by mouth once daily Multivitamin Active 1 TABLET PO DAILY July 01, 2023 1:00am Multivitamin tablet (1 source) Start: 07-01-2023 Multivitamin tablet Active 1 {tbl} PO DAILY July 01, 2023 1:00am rosuvastatin calcium 10 mg oral tablet (2 sources) HMG-CoA Reductase Inhibitor Start: 07-01-2023 Rosuvastatin 10 mg tablet Active 10 mg PO MOWEJuly 01, 2023 1:00am Completed/Discontinued Medications Medication Drug Class(es) Dates Sig (Normalized) Sig (Original) aspirin 81 mg delayed release oral tablet (2 sources) Platelet Aggregation Inhibitor, Nonsteroidal Anti-inflammatory Drug Start: 07-01-2023 End: 03-12-2024 take 1 tablet by mouth once daily Aspirin (Adult Aspirin Regimen) 81 mg tablet,delayed release (DR/EC) Discontinued 81 mg PO DAILY July 01, 2023 1:00am March 12, 2024 11:15am famotidine 20 mg oral tablet (1 source) Histamine-2 Receptor Antagonist Start: 04-07-2024 End: 05-19-2024 take 1 tablet by mouth once daily Famotidine 20 mg Tablet Discontinued 20 mg PO DAILY 14 14 0 April 07, 2024 1:00am May 19, 2024 10:29am oxyCODONE hydrochloride 5 mg oral tablet (1 source) Opioid Agonist Start: 04-07-2024 End: 05-19-2024 take 5-10 mg by mouth every four hours as needed for pain Oxycodone 5 mg Tablet Discontinued 5 - 10 mg PO EVERY 4 HOURS NEEDED as needed for as needed for pain 36 7 0 April 07, 2024 May 19, 2024 10:30am Status post total replacement of left hip Presence of left artificial hip joint Problems Problem Classification Problem Date Documented Da te Episodic/Chronic Cardiac dysrhythmias (11 sources) Ventricular bigeminy; Translations: [Other specified cardiac arrhythmias] Onset: 07-19-2023 07-01-2023 Chronic Diabetes mellitus without complication (2 sources) Prediabetes; Translations: [Prediabetes] 07-01-2023 Episodic Disorders of lipid metabolism (3 sources) Hyperlipidemia; Translations: [Hyperlipidemia, unspecified] Onset: 07-19-2023 07-01-2023 Chronic Essential hypertension (5 sources) Essential hypertension; Translations: [Essential (primary) hypertension] Onset: 07-19-2023 07-01-2023 Chronic Comment on above: CONTROLLED ON MED Osteoarthritis (3 sources) Osteoarthritis; Translations: [Unspecified osteoarthritis, unspecified site] Onset: 05-01-2024 07-01-2023 Chronic Other connective tissue disease (1 source) Presence of left artificial hip joint; Translations: [Presence of left artificial hip joint] Onset: 04-08-2024 Chronic Other connective tissue disease (1 source) History of total hip arthroplasty; Translations: [Presence of left artificial hip joint] 05-19-2024 Chronic Syncope (3 sources) Syncope; Translations: [Syncope and collapse] Onset: 07-19-2023 07-01-2023 Episodic Unclassified (1 source) Other ventricular tachycardia; Translations: [Other ventricular tachycardia] Onset: 07-19-2023 Results Test Name Value Interpretation Reference Range Facility Cardiology Visit Reporton Cardiology Visit Report [facility] [address] [place] [address] OFFICE VISIT Date of Service: 05/19/24 MR#: [id number] Acct: [id number] Name: GE CRUZ Rep #: [id number] : 1945 Provider: MLEVIN vidal Age/Sex: 78/M Location: [facility] Status: Signed HPI HPI History of Present Illness Details: 78-year-old with a history of hypertension and atrial fibrillation. He was evaluated in the Simple[employer] administration system and his electrolytes were noted to be normal. An electrocardiogram performed demonstrated atrial fibrillation with a rapid ventricular response rate of 123 bpm on June 25, 2023. His TSH has been noted to be normal as well as his hemoglobin A1c. He underwent an echocardiogram in July 2023 that showed a preserved ejection fraction and normal atrial size. He underwent a stress test at that same time that was negative for ischemia and showed presenting rhythm of atrial fibrillation at a controlled rate of 78 bpm. He denies chest, arm, jaw, or neck discomfort. He states palpitations occasionally (once a year) that she describes as a flutter sensation. He denies bilateral lower extremity edema. He denies claudication. He denies shortness of breath with activity, shortness of breath at rest, orthopnea, or PND. He denies chronic cough. He denies significant, sudden weight gain. He states previous lightheadedness. He denies dizziness, near-syncope, or syncope. He denies blood in urine, blood in stool, or epistaxis. He denies fever with chills. He denies myalgia. He denies fatigue. His exercise level has remained stable. 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 07/23/23 05/19/24 [facility] tabs metoprolol succinate 50 mg 50 mg PO DAILY Fax to [facility] 07/23/23 05/19/24 Rx tablet,extended release 24 hr [facility] tabs (Toprol XL) sennosides 8.6 mg-docusate sodium 2 tab PO BID 3 days #12 tabs 04/07/24 Rx 50 mg tablet (Stimulant Laxative Plus) acetaminophen 500 mg tablet 1,000 mg PO Q8H PRN 05/19/24 History Ejection fraction %: 55 Have you fallen in the past year?: No PFSH Medical History Wears glasses Alcohol use Arthritis Former smoker History of pain when walking History of edema History of stress test Cardiology follow-up encounter History of atrial fibrillation Encounter for pre-operative cardiovascular clearance Osteoarthritis Essential (primary) hypertension Hyperlipidemia Ventricular bigeminy Prediabetes New onset atrial fibrillation NSVT (nonsustained ventricular tachycardia) Syncope Surgical History 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) Hx of colonoscopy Hx of bilateral cataract extraction History of femur fracture Family History Brother CVA (cerebral vascular accident) Social History Smoking Status: Former smoker how long ago did patient quit smokin years alcohol intake: current alcohol intake frequency: 0-2 drinks per day Alcohol type: beer substance use type: does not use caffeine: Yes Type: coffee Number of servings: 5 ROS Const Const: Negative for fatigue or weakness Eyes Eyes: Negative for change in vision ENT ENT: Negative for dizziness or balance problems Cardio Chest Pain: No Palpitations: Yes (Occasionally) feels like its: other (fluttering) Edema: None Muscle aches with walking: None (Resolved after hip surgery) Resp Respiratory: Negative for SOB with activity, SOB at rest or SOB orthopnea SOB lying down GI GI: Negative nausea or heartburn : Negative for hematuria or frequent nighttime urination/ nocturia Musc Musc: Negative for balance problems Skin Skin: Negative non-healing lesions or rash Neuro Ne (more content not included)... Normal [facility] Basic Metabolic Profile (BMP )on 04-07-2024 BUN/CRE 18.2 RATIO Normal 02-15 [facility] Comment on above: Performed By: #### L 500.2500, L100.0500 #### [facility] [address] [place], [address] CA,Total 8.3 mg/dL Low 8.5-10.1 [facility] Comment on above: Performed By: #### L 500.2500, L100.0500 #### [facility] [address] [place], [address] Chloride [Moles/Vol] 104 mmol/L Normal 98-[address] [facility] Comment on above: Performed By: #### L 500.2500, L100.0500 #### [facility] [address] [place], [address] CO2 [Moles/Vol] 26.0 mmol/L Normal 21.0-32.0 [facility] Comment on above: Performed By: #### L 500.2500, L100.0500 #### [facility] [address] [place], [address] Creatinine [Mass/Vol] 1.37 mg/dL High 0.70-1.30 [facility] Comment on above: Result Comment: The validity of the calculated GFR GFRAA in patients over 70 years has not been determined. Clinical correlation is essential. Performed By: #### L 500.2500, L100.0500 #### [facility] [address] [place], [address] ECRCL 48.86 ml/min Normal [facility] Comment on above: Performed By: #### L 500.2500, L100.0500 #### [facility] [address] [place], [address] EST GFR - AA 65 mL/min Normal >60 [facility] Comment on above: Result Comment: Afri can English GFR Calc Performed By: #### L 500.2500, L100.0500 #### [facility] [address] [place], [address] GAP 4 Low 5-15 [facility] Comment on above: Performed By: #### L 500.2500, L100.0500 #### [facility] [address] [place], [address] GFR/1.73 sq M.predicted among non-blacks MDRD (S/P/Bld) [Vol rate/Area] 54 mL/min/{1.73_m2} Low >60 [facility] Comment on above: Result Comment: Non- GFR Calc Performed By: #### L 500.2500, L100.0500 #### [facility] [address] [place], [address] Glucose [Mass/Vol] 123 mg/dL High 74-106 [facility] Comment on above: Result Comment: Fast ing Glucose result from 100 to 125 mg/dL suggests IMPAIRED HOMEOSTASIS per A.D.A. criteria. Performed By: #### L 500.2500, L100.0500 #### [facility] [address] [place], [address] Potassium [Moles/Vol] 4.8 mmol/L Normal 3.5-5.1 [facility] Comment on above: Performed By: #### L 500.2500, L100.0500 #### [facility] [address] [place], [address] Sodium [Moles/Vol] 134 mmol/L Low 136-145 [facility] Comment on above: Performed By: #### L 500.2500, L100.0500 #### [facility] [address] [place], [address] Urea nitrogen [Mass/Vol] 25 mg/dL High 7-18 [facility] Comment on above: Performed By: #### L 500.2500, L100.0500 #### [facility] [address] [place], [address] CBC-Complete Blood Cnt No Di ffon 04-07-2024 Erythrocyte distribution width (RBC) [Ratio] 12.7 % Normal 11.6-14.6 [facility] Comment on above: Performed By: #### L 500.2500, L100.0500 #### [facility] [address] [place], [address] Hematocrit (Bld) [Volume fraction] 31.4 % Low 40-54 [facility] Comment on above: Performed By: #### L 500.2500, L100.0500 #### [facility] [address] [place], [address] Hemoglobin (Bld) [Mass/Vol] 10.5 g/dL Low 13.0-16.5 [facility] Comment on above: Performed By: #### L 500.2500, L100.0500 #### [facility] [address] [place], [address] MCH (RBC) [Entitic mass] 30.7 pg Normal 27.0-32.0 [facility] Comment on above: Performed By: #### L 500.2500, L100.0500 #### [facility] [address] [place], [address] MCHC (RBC) [Mass/Vol] 33.4 g/dL Normal 32-36 [facility] Comment on above: Performed By: #### L 500.2500, L100.0500 #### [facility] [address] [place], [address] MCV (RBC) [Entitic vol] 91.8 fL Normal 80-94 [facility] Comment on above: Performed By: #### L 500.2500, L100.0500 #### [facility] [address] [place], [address] Platelet mean volume (Bld) [Entitic vol] 10.6 fL Normal 6.2-12.0 [facility] Comment on above: Performed By: #### L 500.2500, L100.0500 #### [facility] [address] [place], [address] Platelets (Bld) [#/Vol] 164 10*3/uL Normal 150-450 [facility] Comment on above: Performed By: #### L 500.2500, L100.0500 #### [facility] [address] [place], [address] RBC (Bld) [#/Vol] 3.42 10*6/uL Low 4.6-6.2 [facility] Comment on above: Performed By: #### L 500.2500, L100.0500 #### [facility] [address] [place], [address] RDW SD 42.1 fl Normal 35.1-43.9 [facility] Comment on above: Performed By: #### L 500.2500, L100.0500 #### [facility] [address] [place], [address] WBC (Bld) [#/Vol] 14.6 10*3/uL High 4.4-11.0 [facility] Comment on above: Performed By: #### L 500.2500, L100.0500 #### [facility] [address] [place], [address] Discharge Instructionon 03-29 Discharge Instruction [facility] Medical Records Department [address] [place] [address] Instructions for Home/Discharge Instructions 04/07/24 0710 MR#: [id number] Acct: [id number] Name: GE CRUZ Rep #: [id number] : 1945 78 From: Omid VELAZQUEZ PA-C PCP: [facility] Status:ADM ROXIE Discharge Instructions Diet Discharge Diet: No restrictions DC O2, CPAP, BIPAP needs Additional Home O2 Discharge instructions: No Dressing / Incision Discharge Activity: May Not Drive (Okay to consider driving once you are able to walk 100 feet with use of cane and no longer using narcotics) May shower in (days): 1 (only if incision is dry and without drainage. Do NOT soak/submerge in tub/pool/reid/stream/hot tub.)) Ice area for (Minutes): 20 (Every 1-2 hours while awake[address] place barrier between ice and skin.) Weight Bearing Status: Weight bearing as tolerated Keep extremity elevated above heart level: Operative Extremity Additional Activity Instructions:: Follow [facility] Post-op Instructions. Once postoperative dressing has been removed only use gentle soap and water over the incision. Do not use any ointments, Neosporin, salves, alcohol pads over the incision for 6 weeks postoperatively. Do not submerge underwater for 6 weeks postoperatively. Wear elastic stockings for 2 weeks. Do NOT use alcohol with narcotic pain medication. Do NOT make important decisions while taking narcotic medication. If you have problems with taking your medication (rash, itching, nausea, etc.) call the office at once. Dressing / Incision Call your doctor if your incision/area has: Continuous Slow Oozing, Sudden Increased Bleeding, Increased Pain/ Swelling, Increased Redness and Foul Smelling Discharge Call your doctor if you observe: Fever of 101 or Higher, Shortness of breath, Chest pain, Calf discomfort and Uncontrolled pain Remove Dressing in: 4 days (Okay to remove dressing on April 11, 2024) Additional Dressing/Incision Instructions:: Follow [facility] Post-op Instructions. Once postoperative dressing has been removed, only use gentle soap and water over the incision. Do not use any ointments, Neosporin, salves, alcohol pads over the incision for 6 weeks postoperatively. Do not submerge underwater for 6 weeks postoperatively. Continue with CURTIS hose/elastic stockings for 2 weeks postoperatively. May remove at nighttime but needs to be placed back on the leg during the day. Do NOT use alcohol with narcotic pain medication. Do NOT make important decisions while taking narcotic medication. If you have problems with taking your medication (rash, itching, nausea, etc.) call the office at once. Follow Up Care Test Results: Test results from this visit will be discussed in further detail at your follow-up appointment, if applicable. Discharge Plan Admission Admit Date/Time: 04/06/24 07:05 Attending Provider: Colin Sifuentes Primary Care Provider: [facility],[place] Consulting Providers: Rashad Shields; Chris Coronado Discharge Orders/Prescriptions Prescriptions: New acetaminophen 500 mg Tablet 1,000 mg PO Q8H 14 Days Qty: 84 0RF Rx Instructions: Do not take more than 3000 mg Tylenol in a 24-hour period. famotidine 20 mg Tablet 20 mg PO DAILY 14 Days Qty: 14 0RF oxycodone 5 mg Tablet 5 - 10 mg PO Q4H PRN PRN (Reason: as needed for pain) 7 Days Qty: 36 0RF sennosides-docusate sodium [Stimulant Laxative Plus] 8.6-50 mg Tablet 2 tab PO BID 3 Days Qty: 12 0RF Rx Instructions: Take until first bowel movement, then as needed Continued amlodipine 5 mg tablet 5 mg PO DAILY lisinopril 20 mg tablet 20 mg PO DAILY rosuvastatin 10 mg tablet 10 mg PO MOWEFR cholecalciferol (vitamin D3) 50 mcg (2,000 unit) tablet 50 mcg PO DAILY multivitamin Tablet 1 tab PO DAILY Eliquis 5 mg tablet 5 mg PO BID Qty: 180 3RF Patient Comments: DR. SIFUENTES WILL ADVISE RE:STOPPING PREOP metoprolol succinate [Toprol XL] 50 mg tablet extended release 24 hr 50 mg PO DAILY Qty: 180 3RF Referrals / Follow Up: Physical,Therapy [Other] - 04/09/24 1:30 pm Cyndy Murillo PA [Med Staff - Adv Practice Prof] - 04/20/24 3:15 pm [place] [Primary Care Provider[place] - Disposition Disposition (needs filled in before D/C Order can be placed): Home, Self Care 04/07/24 0716 Omid VELAZQUEZ PA-C CC: Dr. Rashad Shields MD; Dr. Chris Coronado MD; [facility] Signed Normal [facility] Bedside Glucoseon 04-06-2024 FINGERSTICK GLU 70 mg/dL Low 74-106 [facility] Comment on above: Result Comment: TU WOODRUFF OF PATIENT CARE PER NURSING PROTOCOL Performed By: #### L 501.080 #### [facility] [address] [place], [address] Decalcification bone/plaqueo n 04-06-2024 Decalcification bone/plaque Patient Age/Sex Location Account Attending Physician GE CRUZ 78/M MS3 [id number] Dr. Colin Sifuentes MD Specimen: [id number] Received: 04/06/24 Status: JULIA Payanabram Num: [id number] Spec Type: FEM HEAD Subm Dr: Dr. Colin Sifuentes MD HEADER OPERATION: Anterior left total hip arthroplasty PRE-OP DIAGNOSIS: Severe left hip osteoarthritis TISSUE SUBMITTED: Left femoral head MICROSCOPIC DIAGNOSIS Bone and tissue of left hip, total hip resection: Severe degenerative joint disease. AM: 04/09/2024 MICROSCOPIC DESCRIPTION Slides are reviewed. GROSS DESCRIPTION Received is one container labeled with the patient's name and designated bone and soft tissue left hip. The specimen consists of a wright femoral head (with portion of femoral neck). The femoral head measures 6.5 x 5.5 x 5.0 cm . The articular surface displays prominent osteophyte formation, eburnation and bone erosion. Also present in the specimen container are multiple irregular fragments of bone reamings measuring in aggregate 9.0 x 7.0 x 1.5 cm. [employer] Developer sections are submitted in two cassettes as follows: 1 - bone reamings, 2 - femoral head after decalcification. / AM.mr 04/06/2024 TC:5 CPT: 74843, 91038 Patient Age/Sex Location Account Attending Physician GE CRUZ 78/M MS3 [id number] Dr. Colin Sifuentes MD Signed (signature on file) Dr. Malcolm Patton DO 04/09/24 1138 Normal [facility] Comment on above: Performed By: #### P DEC ####[facility] [id number] [place], [place], [address] Hip 1 view with Pelvison Hip 1 view with Pelvis [facility] [address] [place], [place] [address] Hip 1 view with Pelvis MR#: [id number] Acct: [id number] Name: GE CRUZ Rep #: [id number] : 1945 M 78 From: Uriel Guillory MD PCP: [facility] Status: ADM ROXIE Study: Hip 1 view with Pelvis Date of Exam: 04/06/24 Exam# [id number] Ordering Dr: Colin Sifuentes MD [id number] STUDY: X-RAY - PELVIS AND LEFT HIP REASON FOR EXAM: Male, 78 years old. PAIN TECHNIQUE: 1 views of the pelvis and hip. COMPARISON: None. FINDINGS: 13 seconds of fluoroscopy of the left hip is utilized operating room during arthroplasty in 8 images are submitted for interpretation. . RAD/Hip 1 view with Pelvis IMPRESSION: Fluoroscopy during left hip arthroplasty. Electronically Signed: Uriel Guillory MD at 9:50 EST , CC: Dr. Colin Sifuentes MD; [facility] Manager Technical Services: Signed Normal [facility] Hip Min 2 Views (Portable)on 04-06-2024 Hip Min 2 Views (Portable) [facility] Imaging Services [address] [place] [address] Hip Min 2 Views (Portable) MR#: [id number] Acct: [id number] Name: GE CRUZ Rep #: [id number] : 1945 M 78 From: Armani Matias MD PCP: [facility] Status: ADM ROXIE Study: Hip Min 2 Views (Portable) Date of Exam: 04/06 Exam# [id number] Ordering Dr: Colin Sifuentes MD [id number] STUDY: X-RAY - PELVIS AND LEFT HIP REASON FOR EXAM: Male, 78 years old. Post Op -- AP both hips on single leah/lateral of op hip PACU TECHNIQUE: 2 views of the pelvis and left hip. COMPARISON: None. FINDINGS: There is a non-specific bowel gas pattern. Normal visualized soft tissue structures. Normal bilateral iliac wings, sacroiliac joints and visualized sacrum. Normal bilateral superior and inferior pubic rami. Normal pubic symphysis. Normal bilateral ischial tuberosities. There is a new left hip arthroplasty in place. There is no periprosthetic fracture. There is surrounding soft tissue gas, compatible with recent surgery. There is moderate to severe degenerative arthrosis of the right hip joint. RAD/Hip Min 2 Views (Portable) IMPRESSION: New left hip arthroplasty, with no periprosthetic fracture. Moderate to severe degenerative arthrosis of the right hip joint. Electronically Signed: Armani Matias MD at 11:16 EST , CC: Dr. Colin Sifuentes MD; [facility] Manager Technical Services: Signed [facility] MR/POSTOP.ANEon 04-06-2024 MR/POSTOP.ANE [facility] Medical Records Department [address] [place] [address] Anesthesia Postop Eval I 04/06/24 1045 MR#: [id number] Acct: [id number] Name: GE CRUZ Rep #: [id number] : 1945 78 From: Liliana Tellez PCP: [facility] Status:REG SDC Y Race: C Location: [place] [address] Anesthesia: Postop Eval I Current Vital Signs Temperature: 97 F Pulse Rate: 114 Blood Pressure: 126/66 Respiratory Rate: 18 Pulse Ox: 96 Assessment Airway patent: Yes Spontaneous unlabored respirations: Yes nausea: No Vomiting: No Anesthesia Complication: No Fluid Hydration Crystalloid volume administer (ml): 1,500 Total IV fluid infused: 1,500 Progress Note Anesthesia document: Postop Eval 1 completed: Yes 04/06/24 104 Date Liliana Robles Signature: Date CC: Signed [facility] MR/[id number] 04-06-2024 MR/POSTOPAN2 [facility] Medical Records Department [address] [place] [address] Anesthesia Postop Eval II 04/06/24 1748 MR#: [id number] Acct: [id number] Name: GE CRUZ Rep #: [id number] : 1945 78 From: Rashad Shields MD PCP: [facility] Status:ADM ROXIE Y Race: C Location: [place] [id number] Anesthesia Postop Eval I Sum Postop Eval Completion status Anesthesia document: Postop Eval 1 completed: Yes Anesthesia Postop Eval I Summary Anesthesia Postop Eval I Summary: Anesthesia Postop Eval I: Assessment Summary Airway patent Yes 04/06/24 10:46 WIRE COINER.CSIR Spontaneous unlabored Yes 04/06/24 10:46 WIRE COINER.CSIR respirations Mental status nausea No 04/06/24 10:46 WIRE COINER.CSIR Vomiting No 04/06/24 10:46 WIRE COINER.CSIR Anesthesia Postop Eval I: Fluid Summary Crystalloid volume administer 1,500 04/06/24 10:46 WIRE COINER.CSIR (ml) Colloids volume administered ( ml) Blood Product volume administered (ml) Total IV fluid infused 1,500 04/06/24 10:46 WIRE COINER.CSIR Anesthesia Postop Eval I: Summary Notes Anesthesia Complication No 04/06/24 10:46 WIRE COINER.CSIR Anesthesia Complication Comment: Post-operative progress note Anesthesia: Postop Eval II Evaluation Mental status: Awake Pain Level: 2 nausea: No Vomiting: No 04/06/24 1748 Date Rashad Ledezma Signature: Date CC: Signed Normal [facility] Operative Reporton 4 Operative Report [facility] Medical Records Department [address] [place] [address] Operative Report 04/06/24 1004 MR#: [id number] Acct: [id number] Name: GE CRUZ Rep #: [id number] : 1945 78 From: Colin Sifuentes MD PCP: [facility] Status:REG [facility] Location: [place] [address] Operative Report (Standard) Operative Information Date of Procedure: 04/13/24 Pre-Operative Diagnosis: Left hip primary osteoarthritis Post-Operative Diagnosis: Left hip primary osteoarthritis Surgery/Procedure Performed: Left direct anterior minimally invasive total replacement picc nurse: Yes Marble Coper: Omid Correa Tasks completed by web press operator assistant: Other Additional phlebotomist medical lab assistant?: No Type of Anesthesia: General RN Documented Start/Stop Times: Operation Date: 04/06/24 08:45 Case Time Into Pre-Op 04/06/24 06:48 Anesthesia Start 04/06/24 08:34 Into Room 04/06/24 08:34 Out of Pre-Op 04/06/24 08:34 Procedure Start 04/06/24 09:10 Procedure Start Time: 09:10 Procedure Stop Time: 11:00 Select all DRAINS/GRAFTS/IMPLANTS that apply: None Special Medications: 2 g Ancef, 1 g TXA at incision, 1 g TXA closure, 10 mg Decadron, joint cocktail (5 mg Duramorph, 30 mL of 0.5% Ropivicaine, 1000 units of epinephrine, 30 mg of Toradol) Estimated Blood Loss: 350 ml Fluids Replaced: 1500 mL crystalloid Specimen collected: Yes Description of specimen(s) removed: Bony cuts Description of surgery: Components used: 1. Insignia Peterman femoral stem size 6 high offset 2. Peterman trident 2 acetabular shell size 54 mm 3. Peterman X3 polyethylene E 4. Randell Biolox delta 36mm, 7.5mm femoral head Brief history operative indications: 78 yo m who failed conservative measures for their hip osteoarthritis. X-rays were consistent with osteoarthritis including joint space narrowing, osteophyte formation and subchondral cysts. Total hip replacement was discussed with the patient with risks and benefits including but not limited to blood loss, DVTs, PEs, neurovascular damage, dislocation, general risks of anesthesia including loss of life. Patient demonstrated an understanding medical clearance is obtained the patient was consented for surgery. Procedure: On the date of procedure the patient's L hip was marked in the preoperative area. Patient was then taken back to the operating room where anesthesia assumed control of the C-spine and airway and administered anesthetic. Patient was transferred to the operating table and placed in the supine position. The hips were placed at the break of the bed and a sacral bump was placed. The L lower extremity was then prepped out in a sterile fashion using chlorhexidine while the surgeon scrubbed. The PA was vital in the positioning of the patient. Upon reentering the room the L lower extremity was draped in the standard orthopedic fashion and the incision was marked. A timeout was called and everyone agreed upon the side, the site, the procedure be performed, antibody given, and patient's identity. At this time incision was made through skin, subcutaneous tissue, and fat down to fascia. The fascia was then incised and the TFL was retracted laterally. A retractor was placed on the lateral border of the femoral neck. Attention was directed to the inferior portion of the approach and all crossing vessels were identified and appropriately coagulated. A retractor was then placed on the medial portion of the femoral neck. The anterior capsule was then cleared of all soft tissue and then H shaped capsulotomy was made. The retractors were then placed inside the capsule. The femoral neck was identified and a cleanup cut was made. At this time a power corkscrew was used to remove the femoral head. Attention was then turned toward the acetabulum where the soft tissues were appropriately retracted and the acetabulum was sequentially reamed to 54 mm. A 54 mm cup was then selected and impacted into place. Acetabular liner was impacted into place and locking mechanism was verified. The position of the acetabular cup was then verified under live fluoroscopy. Attention was then turned to the femur. Soft tissue releases on the medial and lateral femoral neck were appropriately done, the leg was externally rotated and lateralized. A Summers retractor was placed medially and proximally to the greater trochanter this allowed appropriate visualization and exposure of the femoral canal. Rongeour was then used to remove excess lateral bone. A canal finder and entry broach were used to open the proximal canal. Once we verified we were down the femoral canal we subsequently broached up to a size 6 femur. The appropriate neck was placed in the previously selected head was trialed with a 7.5 mm neck. Traction was pulled and the hip was reduced with internal rotation. Once it was appropriately reduced and stability was vishnu (more content not included)... Normal [facility] MRSA/SAID NASAL SCREENon MRSA+SAID SCRN Reason for Exam: PRE -OP MRSA MRSA Negative S. AUREUS S. aureus Negative Normal [facility] Comment on above: Performed By: #### L 501.1800, L100.0100, M100.651, L500.2500 ####[facility] [address] [place], [address] Albumin, Serumon 03-17-2024 Albumin [Mass/Vol] 3.6 g/dL Normal 3.2-5.0 [facility] Comment on above: Performed By: #### L 501.1800, L100.0100, M100.651, L500.2500 ####[facility] [address] [place], [address] Basic Metabolic Profile (BMP )on 03-17-2024 BUN/CRE 11.9 RATIO Normal 10-20 [facility] Comment on above: Performed By: #### L 501.1800, L100.0100, M100.651, L500.2500 ####[facility] [address] [place], [address] CA,Total 9.0 mg/dL Normal 8.5-10.1 [facility] Comment on above: Performed By: #### L 501.1800, L100.0100, M100.651, L500.2500 ####[facility] [address] [place], [address] Chloride [Moles/Vol] 106 mmol/L Normal 98-[address] [facility] Comment on above: Performed By: #### L 501.1800, L100.0100, M100.651, L500.2500 ####[facility] [address] [place], [address] CO2 [Moles/Vol] 28.0 mmol/L Normal 21.0-32.0 [facility] Comment on above: Performed By: #### L 501.1800, L100.0100, M100.651, L500.2500 ####[facility] [address] [place], [address] Creatinine [Mass/Vol] 1.26 mg/dL Normal 0.70-1.30 [facility] Comment on above: Result Comment: The validity of the calculated GFR GFRAA in patients over 70 years has not been determined. Clinical correlation is essential. Performed By: #### L 501.1800, L100.0100, M100.651, L500.2500 ####[facility] [address] [place], [address] EST GFR - AA 72 mL/min Normal >60 [facility] Comment on above: Result Comment: Afri can English GFR Calc Performed By: #### L 501.1800, L100.0100, M100.651, L500.2500 ####[facility] [address] [place], [address] GAP 3 Low 5-15 [facility] Comment on above: Performed By: #### L 501.1800, L100.0100, M100.651, L500.2500 ####[facility] [address] [place], [address] GFR/1.73 sq M.predicted among non-blacks MDRD (S/P/Bld) [Vol rate/Area] 59 mL/min/{1.73_m2} Low >60 [facility] Comment on above: Result Comment: Non- GFR Calc Performed By: #### L 501.1800, L100.0100, M100.651, L500.2500 ####[facility] [address] [place], [address] Glucose [Mass/Vol] 99 mg/dL Normal 74-106 [facility] Comment on above: Performed By: #### L 501.1800, L100.0100, M100.651, L500.2500 ####[facility] [address] [place], [address] Potassium [Moles/Vol] 4.1 mmol/L Normal 3.5-5.1 [facility] Comment on above: Performed By: #### L 501.1800, L100.0100, M100.651, L500.2500 ####[facility] [address] [place], [address] Sodium [Moles/Vol] 138 mmol/L Normal 136-145 [facility] Comment on above: Performed By: #### L 501.1800, L100.0100, M100.651, L500.2500 ####[facility] [address] [place], [address] Urea nitrogen [Mass/Vol] 15 mg/dL Normal 7-18 [facility] Comment on above: Performed By: #### L 501.1800, L100.0100, M100.651, L500.2500 ####[facility] [address] [place], [address] CBC W/Diff, Automatedon 02-27 Absolute Lymph 1.78 X10 3/uL Normal 0.83-4.51 [facility] Comment on above: Performed By: #### L 501.1800, L100.0100, M100.651, L500.2500 ####[facility] [address] [place], [address] Absolute Neut 3.3 X10 3/uL Normal 2.0-7.7 [facility] Comment on above: Performed By: #### L 501.1800, L100.0100, M100.651, L500.2500 ####[facility] [address] [place], [address] Basophils/100 WBC (Bld) 0.3 % Normal 0-1 [facility] Comment on above: Performed By: #### L 501.1800, L100.0100, M100.651, L500.2500 ####[facility] [address] [place], [address] Eosinophils/100 WBC (Bld) 2.7 % Normal 0-5 [facility] Comment on above: Performed By: #### L 501.1800, L100.0100, M100.651, L500.2500 ####[facility] [address] [place], [address] Erythrocyte distribution width (RBC) [Ratio] 12.8 % Normal 11.6-14.6 [facility] Comment on above: Performed By: #### L 501.1800, L100.0100, M100.651, L500.2500 ####[facility] [address] [place], [address] Hematocrit (Bld) [Volume fraction] 43.6 % Normal 40-54 [facility] Comment on above: Performed By: #### L 501.1800, L100.0100, M100.651, L500.2500 ####[facility] [address] [place], [address] Hemoglobin (Bld) [Mass/Vol] 14.3 g/dL Normal 13.0-16.5 [facility] Comment on above: Performed By: #### L 501.1800, L100.0100, M100.651, L500.2500 ####[facility] [address] [place], [address] IG% 0.200 Normal 0.0-0.9 [facility] Comment on above: Result Comment: IG% - Immature Granulocytes (promyelocytes, myelocytes and metamyelocytes) > 1% indicates that a LEFT SHIFT is Present. Performed By: #### L 501.1800, L100.0100, M100.651, L500.2500 ####[facility] [address] [place], [address] Lymphocytes/100 WBC (Bld) 30.0 % Normal 19-41 [facility] Comment on above: Performed By: #### L 501.1800, L100.0100, M100.651, L500.2500 ####[facility] [address] [place], [address] MCH (RBC) [Entitic mass] 30.6 pg Normal 27.0-32.0 [facility] Comment on above: Performed By: #### L 501.1800, L100.0100, M100.651, L500.2500 ####[facility] [address] [place], [address] MCHC (RBC) [Mass/Vol] 32.8 g/dL Normal 32-36 [facility] Comment on above: Performed By: #### L 501.1800, L100.0100, M100.651, L500.2500 ####[facility] [address] [place], [address] MCV (RBC) [Entitic vol] 93.2 fL Normal 80-94 [facility] Comment on above: Performed By: #### L 501.1800, L100.0100, M100.651, L500.2500 ####[facility] [address] [place], [address] Monocytes/100 WBC (Bld) 11.3 % High 0-10 [facility] Comment on above: Performed By: #### L 501.1800, L100.0100, M100.651, L500.2500 ####[facility] [address] [place], [address] Neutrophils/100 WBC (Bld) 55.5 % Normal 47-70 [facility] Comment on above: Performed By: #### L 501.1800, L100.0100, M100.651, L500.2500 ####[facility] [address] [place], [address] Nucleated RBC (Bld) [#/Vol] 0 10*3/uL Normal 0-5 [facility] Comment on above: Performed By: #### L 501.1800, L100.0100, M100.651, L500.2500 ####[facility] [address] [place], [address] Platelet mean volume (Bld) [Entitic vol] 10.5 fL Normal 6.2-12.0 [facility] Comment on above: Performed By: #### L 501.1800, L100.0100, M100.651, L500.2500 ####[facility] [address] [place], [address] Platelets (Bld) [#/Vol] 185 10*3/uL Normal 150-450 [facility] Comment on above: Performed By: #### L 501.1800, L100.0100, M100.651, L500.2500 ####[facility] [address] [place], [address] RBC (Bld) [#/Vol] 4.68 10*6/uL Normal 4.6-6.2 [facility] Comment on above: Performed By: #### L 501.1800, L100.0100, M100.651, L500.2500 ####[facility] [address] [place], [address] RDW SD 43.8 fl Normal 35.1-43.9 [facility] Comment on above: Performed By: #### L 501.1800, L100.0100, M100.651, L500.2500 ####[facility] [address] [place], [address] WBC (Bld) [#/Vol] 5.9 10*3/uL Normal 4.4-11.0 [facility] Comment on above: Performed By: #### L 501.1800, L100.0100, M100.651, L500.2500 ####[facility] [address] [place], [address] Magnesiumon 03-17-2024 Magnesium [Mass/Vol] 2.4 mg/dL Normal 1.6-2.[address] [facility] Comment on above: Performed By: #### L 501.5200 ####[facility] [address] [place], [address] Cardiology Visit Reporton Cardiology Visit Report [facility] [address] [place] [address] OFFICE VISIT Date of Service: 11/14/23 MR#: [id number] Acct: [id number] Name: GE CRUZ Rep #: [id number] : 1945 Provider: MELVIN vidal Age/Sex: 78/M Location: [facility] Status: Signed HPI [facility] History of Present Illness Details: 78-year-old with a history of hypertension and atrial fibrillation. He was evaluated in the SimpleOrder administration system and his electrolytes were noted to be normal. An electrocardiogram performed demonstrated atrial fibrillation with a rapid ventricular response rate of 123 bpm on June 25, 2023. His TSH has been noted to be normal as well as his hemoglobin A1c. He underwent an echocardiogram in July 2023 that showed a preserved ejection fraction and normal atrial size. He underwent a stress test at that same time that was negative for ischemia and showed presenting rhythm of atrial fibrillation at a controlled rate of 78 bpm. He denies chest, arm, jaw, or neck discomfort. He denies palpitations. He states bilateral lower extremity edema that he states in unchanged from previous. He denies claudication. He denies shortness of breath with activity, shortness of breath at rest, orthopnea, or PND. He denies chronic cough. He denies significant, sudden weight gain. He states two dizzy spells. He denies lightheadedness, near-syncope, or syncope. He denies blood in urine, blood in stool, or epistaxis. He denies fever with chills. He denies myalgia. He denies fatigue. His exercise level has remained stable. 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: No Is patient in pain?: No Allergies meperidine HCl (From Demerol) Allergy (Verified 11/14/23 08:52) Unknown Have you fallen in the past year?: No Nurse's Note: patient has no idea what medications he is taking [facility] Medical History (Reviewed 11/14/23 @ 09:22 by Colin Lemon WARDROBE IMAGE CONSULTANT, WARDROBE IMAGE CONSULTANT-C) Encounter for pre-operative cardiovascular clearance Osteoarthritis Essential (primary) hypertension Hyperlipidemia Ventricular bigeminy Prediabetes New onset atrial fibrillation NSVT (nonsustained ventricular tachycardia) Syncope Surgical History (Reviewed 11/14/23 @ 09:22 by Colin Lemon WARDROBE IMAGE CONSULTANT, WARDROBE IMAGE CONSULTANT-C) History of femur fracture Family History (Reviewed 11/14/23 @ 09:22 by Colin Lemon WARDROBE IMAGE CONSULTANT, WARDROBE IMAGE CONSULTANT-C) Brother CVA (cerebral vascular accident) Social History (Reviewed 11/14/23 @ 09:22 by Colin Lemon WARDROBE IMAGE CONSULTANT, WARDROBE IMAGE CONSULTANT-C) Smoking Status: Former smoker how long ago did patient quit smokin years alcohol intake: current alcohol intake frequency: 0-2 drinks per day Alcohol type: beer substance use type: does not use caffeine: Yes Type: coffee Number of servings: 5 ROS Const Const: Negative for fatigue, weakness, body ache, fever(s) or chills ENT ENT: Positive for dizziness; Negative for Nosebleed/epistaxis Cardio Chest Pain: No Palpitations: No Edema: Bilateral Muscle aches with walking: None Resp Respiratory: Negative for SOB with activity, SOB at rest, SOB orthopnea SOB lying down, Cough or paroxysmal nocturnal dyspnea GI GI: Negative nausea, vomiting blood/hematemesis, bright, red blood in stools or black,tarry stools : Negative for hematuria or frequent nighttime urination/ nocturia Musc Musc: Negative for muscle aches/ myalgia Skin Skin: Negative non-healing lesions or rash Neuro Neuro: Positive for dizziness; Negative for lightheadedness, near syncope, syncope, orthostatic symptoms or weakness Endo Endo: Negative for fatigue Allergy Allergy/Immunology: Negative for rash Cardiology Exam Const Appearance: cooperative, healthy appearing, comfortable and no acute distress Nutritional Appearance: well nourished and overweight Orientation: alert, awake and oriented x3 Head Head: normal to inspection Ears: hearing grossly normal bilaterally Nose: external nose normal Face and Sinus: face symmetric Mouth: moist mucous membranes Eyes General: appearance normal, both eyes and all related structures Eyelids: eyelids normal EOM: EOM intact bilaterally Neck Neck: normal visual inspection and no JVD Carotids: normal carotid upstroke Chest Chest inspection: normal inspection of the chest, symmetric chest movement and normal respiratory effort; Negative cough Auscultation: Bilateral: Clear to Auscultation Cardio Rate: Negative regular rate Rhythm: irregularly irregular Heart sounds: S1 normal and S2 normal; Negative rub, gallop or murmur (more content not included)... Normal [facility] Echo Completeon 08-26-2023 Echo Complete [facility] Cardiovascular Services [address] [place] [address] Echo Complete 08/26/23 0920 MR#: [id number] Acct: [id number] Name: GE CRUZ Rep #: [id number] : 1945 77 From: Daren Magaña MD Attending Dr: Dr. Daren Magaña MD Status: [facility] Ordering Dr: Daren Magaña MD Date: 08/26/23 Location: [facility] Sex: M C Admitted: Reason For Study: AFIB Procedure This was a 2D Doppler, Color Flow transthoracic echocardiogram. Exam performed in department. Left Ventricle Normal LV size. Left ventricular systolic function is normal. The estimated ejection fraction is 55 %. No regional wall motion abnormalities noted. Right Ventricle Normal RV size. Normal systolic function. Atria Normal left atrium. Normal right atrium. Mitral Valve Normal mitral valve. Tricuspid Valve Normal tricuspid valve. Mild (1+) tricuspid valve insufficiency. Pulmonary artery systolic pressure is 35 mmHg. Aortic Valve Trisinus/trileaflet aortic valve. Mild (1+) aortic valve insufficiency. Pulmonic Valve Normal pulmonic valve. Great Vessels Normal aortic root. The pulmonary artery is normal size. Normal inferior vena cava. Pericardium/Pleural No pericardial effusion. MMode/2D Measurements Calculations LVIDd: 4.1 cm IVSd: 1.1 cm Ao root diam: 3.7 cm LVIDs: 2.9 cm LVPWd: 1.3 cm RVDd: 3.9 cm FS: 29.2 % LAV(MOD-bp): 56.5 ml LVAd ap4: 20.6 cm2 SV(MOD-sp4): 25.7 ml LAV(MOD-bp) Indexed: 27.7 ml/m2 LVLd ap4: 7.8 cm LAV(MOD-sp2): 69.7 ml EDV(MOD-sp4): 46.9 ml LAV(MOD-sp4): 47.1 ml EDV(sp4-el): 46.4 ml LVAs ap4: 12.1 cm2 LVLs ap4: 5.8 cm ESV(MOD-sp4): 21.2 ml ESV(sp4-el): 21.4 ml EF(MOD-sp4): 54.7 % EF(sp4-el): 53.9 % SV(sp4-el): 25.0 ml LA A4 area: 19.4 cm2 LA dimension(2D): 4.3 cm RA A4 area: 22.0 cm2 TAPSE: 1.8 cm Doppler Measurements Calculations MV E max charlie: 87.2 cm/sec Ao V2 max: 127.0 cm/sec LV V1 max: 110.3 cm/sec Ao max P.5 mmHg LV V1 max P.9 mmHg Ao V2 mean: 88.6 cm/sec LV V1 mean P.8 mmHg Ao mean P.6 mmHg LV V1 mean: 77.9 cm/sec Ao V2 VTI: 28.0 cm LV V1 VTI: 24.4 cm AV (velocity ratio): 0.87 PA V2 max: 111.1 cm/sec TR max charlie: 278.0 cm/sec PA V2 mean: 75.4 cm/sec TR max P.9 mmHg ECHO/Echo Complete Interpretation Summary Normal LV size. Left ventricular systolic function is normal. The estimated ejection fraction is 55 %. Mild (1+) aortic valve insufficiency. Mild (1+) tricuspid valve insufficiency. Pulmonary artery systolic pressure is 35 mmHg. Ordering Physician: Daren Magaña Referring Physician: Daren Magaña Performed By: Gabby Cabrera RCS 08/26/23 125 Date Daren Magaña MD CC: Dr. Daren Magaña MD; [facility] Date Dictated: 08/26/23919 Date Transcribed: 08/26/23 125 Manager Technical Services: Signed Normal [facility] Stress Reporton 08-26-2023 Stress Report [facility] Cardiovascular Services [address] [place] [address] MR#: [id number] Acct: [id number] Name: AMBERHAWGE Rep #: [id number] : 1945 77 From: Daren Magaña MD Primary Care: [facility] Status: REG CLI Referring Dr: Daren Magaña MD Sex: M C Stress Test Report Pharmacologic myocardial perfusion stress test. 77-year-old male with a history of atrial fibrillation for preop evaluation Resting EKG demonstrates atrial fibrillation with a rate of 78 bpm. Resting blood pressure is 130/82 mmHg. 0.4 mg of regadenoson was infused per usual protocol followed by rapid intravenous saline flush injection. Continuous EKG monitoring was performed. The maximum heart rate was 105 bpm which was 85% of max impacted heart rate the maximum workload was 1 metabolic equivalent. At rest there were no ST or T wave changes noted to suggest ischemia and at peak infusion nonspecific ST changes were noted which did not meet the criteria for ischemia. No clinical angina is noted. The final blood pressure was 122/70 mmHg. Myocardial perfusion protocol. 11.8 mCi of technetium 99m sestamibi was injected at rest. 0.4 mg of regadenoson was infused per usual protocol. At peak infusion 34.5 mCi of technetium 99m sestamibi was injected stress images were obtained stress and rest images were reconstructed and compared in the short axis vertical long and horizontal long axis. Gated images were also obtained. Perfusion SPECT analysis: Review of the stress images demonstrate normal uptake of tracer noted in all areas of the myocardium. The resting images similar demonstrated normal uptake of tracer noted in all areas of the myocardium. No areas of reversibility are noted to suggest ischemia and no previous infarct is noted. Gated SPECT analysis: The gated ejection fraction is 60%. Conclusion: Normal pharmacologic myocardial perfusion stress test. Preserved ejection fraction. 08/26/231453 Date Daren Magaña MD CC: Dr. Daren Magaña MD; [facility] Date Dictated: 08/26/231451 Date Transcribed: 08/26/231451 Manager Technical Services: [place] Signed Normal [facility] 12 Lead EKG performed by [facility] on 07-19-2023 12 Lead EKG performed by [address] [place] [address] 12 Lead EKG performed by [facility] 07/19/23 1450 MR#: [id number] Acct: [id number] Name: GE CRUZ Rep #: [id number] : 1945 77 From: Daren Magaña MD Attending Dr: Dr. Daren Magaña MD Status: DEP A MB Ordering Dr: Daren Magaña MD Date: 07/19/23 Location: [facility] Sex: M C Admitted: BMS/12 Lead EKG performed by [facility] ECG Report Interpretation --Atrial fibrillation -RSR(V1) -nondiagnostic. ABNORMAL RHYTHMElectronically signed on 07/22/2023 at 14:51 by Daren Magaña ON24 Software Version 8610 07/22/231456 Date Daren Magaña MD CC: Date Dictated: 07/19/23 145 Date Transcribed: 07/19/231449 Manager Technical Services: [place] Signed Normal [facility] Cardiology Visit Reporton Cardiology Visit Report [facility] [address] [place] [address] OFFICE VISIT Date of Service: 07/19/23 MR#: [id number] Acct: [id number] Name: GE CRUZ Rep #: [id number] : 1945 Provider: Dr. Daren Magaña MD Age/Sex: 77/M Location: [facility] Status: Signed HPI [facility] History of Present Illness Details: 77-year-old with a history of hypertension and atrial fibrillation the duration of which is unclear who tells me that he is scheduled to have hip surgery at some point. He denies any chest pain or shortness of breath or paroxysmal nocturnal dyspnea or pedal edema he has had some palpitations he has not had any syncope or presyncope. He tells me that he was directed to come here for further evaluation and management. He has significant osteoarthritis of both hips. He has been compliant with his antihypertensive medication. He was recently evaluated in the [employer] administration system and his electrolytes were noted to be normal. An electrocardiogram performed demonstrated atrial fibrillation with a rapid ventricular response rate of 123 bpm on June 25, 2023. His TSH has been noted to be normal as well as his hemoglobin A1c. His recent lipid profile demonstrates total cholesterol 150 HDL of 60 LDL of 66. His physical exam here today demonstrates clear lung carrera irregular rate and rhythm and no pedal edema. His electrocardiogram demonstrates atrial fibrillation with a rate of 101 bpm. 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 Accompanied by: None Is patient in pain?: No Allergies meperidine HCl [From Demerol] Allergy (Verified 07/19/23 14:55) Unknown Medications amlodipine 5 mg tablet 5 mg PO DAILY 07/01/23 [History Confirmed 07/19/23] aspirin 81 mg tablet,delayed release (Adult Aspirin Regimen) 81 mg PO DAILY 07/01/23 [History Confirmed 07/19/23] cholecalciferol (vitamin D3) 50 mcg (2,000 unit) tablet 50 mcg PO DAILY 07/01/23 [History Confirmed 07/19/23] lisinopril 20 mg tablet 20 mg PO DAILY 07/01/23 [History Confirmed 07/19/23] multivitamin 1 tab PO DAILY 07/01/23 [History Confirmed 07/19/23] rosuvastatin 10 mg tablet 10 mg PO DAILY 07/01/23 [History Confirmed 07/19/23] apixaban 5 mg tablet (Eliquis) 5 mg PO BID #60 tabs 07/19/23 [Rx Confirmed 07/19/23] metoprolol succinate 50 mg tablet,extended release 24 hr (Toprol XL) 50 mg PO DAILY #60 tabs 07/19/23 [Rx Confirmed 07/19/23] [facility] Medical History Encounter for pre-operative cardiovascular clearance Essential (primary) hypertension Hyperlipidemia New onset atrial fibrillation NSVT (nonsustained ventricular tachycardia) Osteoarthritis Prediabetes Syncope Ventricular bigeminy Surgical History History of femur fracture Family History (Updated 07/19/23 @ 14:59 by Danika Tolentino) Brother CVA (cerebral vascular accident) Social History (Updated 07/19/23 @ 15:00 by Danika Tolentino) Smoking Status: Former smoker how long ago did patient quit smokin years alcohol intake: current alcohol intake frequency: 0-2 drinks per day Alcohol type: beer substance use type: does not use caffeine: Yes Type: coffee Number of servings: 5 ROS Const Const: Negative for fatigue, weakness, headache(s), frequent falls, difficulty sleeping or excessive sweating Eyes Eyes: Negative for loss of peripheral vision, transient loss of vision, blurry vision, double vision or tunnel vision ENT ENT: Positive for balance problems (Uses cane); Negative for headache(s), dizziness or Nosebleed/epistaxis Cardio Chest Pain: No Palpitations: Yes feels like its: irregular Edema: Bilateral Muscle aches with walking: None Resp Respiratory: Negative for SOB with activity, SOB at rest, SOB orthopnea SOB lying down, Cough or paroxysmal nocturnal dyspnea GI GI: Negative nausea, vomiting, heartburn or black,tarry stools : Negative for hematuria Musc Musc: Positive for balance problems (Uses cane); Negative for muscle aches/ myalgia, muscle weakness or joint pain Skin Skin: Negative non-healing lesions, rash or unusual bruising Neuro Neuro: Negative for dizziness, lightheadedness, near syncope, syncope, frequent falls, headache(s), weakness, blurry vision, double vision or lack of coordination Jm Hematologic/Lymphatic: Negative for easy bleeding or easy bruising Endo Endo: Negative for fatigue, excessive sweating or increased thirst/drinking Psych Psych: Negative for anxiety or depression Allergy Allergy/ (more content not included)... [facility] ) -------- GE CRUZ ([id number]) 1945 M Date Time Provider Department 08/16/18 12:00 PM KATHERINE KAUFFMAN [facility] During your visit today, we recorded the following information about you: Temperature Pulse Respiration Blood pressure 97.6 degrees 69/minute 18/minute 120/60 Weight 94.3 kg Katherine Kauffman APRN.RECORDING STUDIO SET UP WORKER 08/16/2018 12:56 PM Signed [facility] PATIENT INFO COMMON COLD OVERVIEW The common cold is one of the most frequent illnesses in the [place]. Although most colds are mild and resolve within a short time period, colds cost billions of dollars per year, mostly due to lost time at work and school. COMMON COLD CAUSES The common cold is a group of symptoms caused by one of a large number of viruses. Rhinoviruses cause the greatest number of colds; there are more than 100 different varieties of rhinovirus. Most viruses cause a person to be ill only once. However, due to the large number of viruses, a person can have a cold multiple times throughout his or her lifetime. The average adult experiences two to three colds per year, while children average 8 to 12 colds per year. Colds are transmitted from [id number]-[id number]. Less often, the virus can be transmitted by touching a surface. Direct contact ? People with colds typically carry the cold virus on their hands. The virus may remain alive on the skin and capable of infecting another person for at least two hours. Thus, if a sick person shakes someone's hand and that individual then touches his eye, nose, or mouth, the virus can be transmitted and later infect that person. Infection from particles on surfaces ? Some cold viruses can live on surfaces (such as a counter top, door handle, or phone) for several hours. Inhaling viral particles ? Droplets containing viral particles can be breathed, coughed, or sneezed into the air by a person with a cold. The virus can be transmitted to others if another person is standing close (a few feet) and the droplet touches that person?s eye, nose, or mouth. Covering the mouth while coughing or sneezing greatly reduces this risk. Most cold viruses are not spread by saliva. Thus, kissing itself is not likely to transmit the common cold, but close direct contact can. Colds are not caused by cold climates or being exposed to cold air. However, some types of virus cause more colds during certain seasons (eg, fall and winter versus spring). COMMON COLD SIGNS AND SYMPTOMS The common cold usually causes nasal congestion, runny nose, and sneezing. A sore throat may be present on the first day but usually resolves quickly. If a cough occurs, it generally develops on about the fourth or fifth day of symptoms, typically when congestion and runny nose are usually resolving. COMMON COLD COMPLICATIONS In most cases, colds do not cause serious illness. Most colds last for three to seven days, although many people continue to have symptoms (coughing, sneezing, congestion) for up to two weeks. Some viruses that cause the common cold can also depress the immune system or cause swelling in the lining of the nose or airways; this can, in turn, lead to a new viral infection or bacterial infection. ? One of the more common complications is sinusitis, which is usually caused by viruses and rarely (about 2 percent of the time) by bacteria. However, it can be difficult to distinguish bacterial sinusitis from sinusitis caused by a cold because the signs and symptoms can be similar Having thick or yellow to green-colored nasal discharge does not mean that bacterial sinusitis has developed; discolored nasal discharge is a normal phase of the common cold. ? Lower respiratory infections, such as pneumonia or bronchitis, may develop following a cold. ? Infection of the middle ear, or otitis media, can accompany or follow a cold. ? The influenza virus, which causes the flu, can also cause features similar to those of a cold. However, the flu usually causes other signs and symptoms (fever, body aches) and is more serious than a cold. COMMON COLD TREATMENT There is no specific treatment for the viruses that cause the common cold. Most treatments are aimed at relieving some of the symptoms of the cold, but do not shorten or cure the cold. Antibiotics are not useful for treating the common cold; antibiotics are only used to treat illnesses caused by bacteria, not viruses. The symptoms of a cold will resolve over time, even without any treatment. The following are treatments that may reduce the symptoms caused by the common cold. People with underlying medical conditions and those who use other [id number] or prescription medications should speak with their healthcare provider or pharmacist to ensure that it is safe to use these treatments. Runny nose and nasal congestion ? Runny nose and congestion may improve with the use of decongestants. Pseudoephedrine is a decongestant that can improve nasal congestion. Most drugstores in the [place] carry pseudoephedrine behind the counter, so it must be requested from the pharmacist (a prescription is not required). Antihistamines such as diphenhydramine (Benadryl?) may also help, but can cause side effects such as drowsiness and drying of the eyes, nose, and mouth. Nasal inhalers, including ipratropium bromide (Atrovent?, available by prescription) may relieve runny nose and sneezing while cromolyn sodium (NasalCrom?, a non-prescription medicine) may relieve runny nose, cough, and sneezing. Other nasal sprays such an oxymetazoline (Afrin? and others) can also give temporary relief of nasal congestion. However, these sprays should never be used for more than two to three days; use for more than three days use can worsen congestion. Nasal irrigation and saline sprays ? Rinsing the nose with a salt-water (saline) solution is called nasal irrigation or nasal lavage. Saline is also available in a standard nasal spray, although this is not as effective as using larger amounts of water in an irrigation. Nasal irrigation is particularly useful for treating drainage down the back of the throat, sneezing, nasal dryness, and congestion. The treatment helps by rinsing out allergens and irritants from the nose. Saline rinses also clean the nasal lining and can be used before applying sprays containing medications, to get a better effect from the medication. Nasal lavage with warmed saline can be performed as needed, once per day, or twice daily for increased symptoms. Nasal lavage carries few risks when performed correctly. Saline nasal sprays and irrigation kits can be purchased mfyj-phn-yvilwqy. Saline mixes can also be purchased or patients can make their own solution. A variety of devices, including bulb syringes, Neti pots, and bottle sprayers, may be used to perform nasal lavage; instructions for nasal lavage are provided in the table. At least 200 mL (about 3/4 cup) of fluid is recommended for each nostril. Sore throat and headache ? Sore throat and headache are best treated with a mild pain reliever such as acetaminophen (Tylenol?) or a non-steroidal anti-inflammatory agent such as ibuprofen or naproxen (Motrin? or Aleve?). Cough ? Common cough medicine ingredients include guaifenesin and dextromethorphan; these are often combined with other medications in cbth-nco-ixypccl cold formulas. However, the benefit of cough medicines is likely to be small to non-existent. In clinical trials, cough suppressants were no more effective in reducing the duration or severity of coughing due to cold than a placebo (a non-drug substitute). Antibiotics ? Antibiotics should not be used to treat an uncomplicated common cold. As noted above, colds are caused by viruses. Antibiotics treat bacterial, not viral infections. Alternative treatments ? Heated, humidified air can improve symptoms of nasal congestion and runny nose, and causes few to no side effects. PREVENTION Hand washing is an essential and highly effective way to prevent the spread of infection. Hands should be wet with water and plain soap, and rubbed together for 15 to 30 seconds. Special attention should be paid to the fingernails, between the fingers, and the wrists. Hands should be rinsed thoroughly, and dried with a single use towel. Alcohol-based hand rubs are a good alternative for disinfecting hands if a sink is not available. Hand rubs should be spread over the entire surface of hands, fingers, and wrists until dry, and may be used several times. These rubs can be used repeatedly without skin irritation or loss of effectiveness. Hand rubs are available as a liquid or wipe in small, portable sizes that are easy to carry in a pocket or handbag. When a sink is available, visibly soiled hands should be washed with soap and water. Hands should be washed before preparing food and eating, and after coughing, blowing the nose, or sneezing. While it is not always possible to limit contact with people who may be infected with a cold, touching the eyes, nose, or mouth after direct contact should be avoided when possible. In addition, tissues should be used to cover the mouth when sneezing or coughing. These used tissues should be disposed of promptly. Sneezing/coughing into the sleeve of one's clothing (at the inner elbow) is another means of containing sprays of saliva and secretions and does not contaminate the hands. SUMMARY ? The average adult experiences two to three colds per year, while children average 8 to 12 colds per year. ? Symptoms of the common cold usually include nasal congestion, runny nose, and sneezing. They typically last for three to seven days, although many people have symptoms (coughing, sneezing, congestion) for up to two weeks. ? People with colds typically carry the cold virus on their hands, where it can infect another person for at least two hours. Some cold viruses can live on surfaces (such as a counter top, door handle, or phone) for several hours. Droplets containing viral particles can be breathed, coughed, or sneezed into the air. ? There is no specific treatment for colds. Treatment may reduce some of the symptoms of the cold, but do not shorten or cure the cold. Antibiotics are not useful for treating the common cold. Hand washing can prevent the spread of infection. Hands should be wet with water and plain soap, and rubbed together for 15 to 30 seconds. Alcohol-based hand rubs are a good alternative for disinfecting hands if a sink is not available Katherine Kauffman APRN.RECORDING STUDIO SET UP WORKER 08/16/2018 1:16 PM Signed Subjective HPI Pt presents with c/o sore throat, cough and eye congestion x 1 week. Sx began with sneezing which resolved. was dx with influenza over a week ago. He never had fever, chills, myalgias. Cough is frequent, moist, nonproductive. Denies chills, myalgias, dyspnea, chest tightness, wheezing, increased WOB, coughing fits. Received influenza vaccine this season, his did not. Has not taken any OTC medications. Review of Systems Constitutional: Negative for chills and fever. HENT: Positive for congestion and sore throat (post nasal drip). Negative for ear discharge, ear pain, sinus pain and tinnitus. Respiratory: Positive for cough. Negative for sputum production, shortness of breath and wheezing. Cardiovascular: Negative for chest pain. Skin: Negative for rash. Neurological: Negative for headaches. Objective Physical Exam Constitutional: He is oriented to person, place, and time and well-developed, well-nourished, and in no distress. No distress. HENT: Head: Normocephalic. Right Ear: Hearing, tympanic membrane, external ear and ear canal normal. Left Ear: Hearing, tympanic membrane, external ear and ear canal normal. Nose: Rhinorrhea present. Right sinus exhibits no maxillary sinus tenderness and no frontal sinus tenderness. Left sinus exhibits no maxillary sinus tenderness and no frontal sinus tenderness. Mouth/Throat: Uvula is midline, oropharynx is clear and moist and mucous membranes are normal. No oropharyngeal exudate, posterior oropharyngeal edema, posterior oropharyngeal erythema (clear drainage) or tonsillar abscesses. Eyes: Pupils are equal, round, and reactive to light. Right eye exhibits no discharge. Left eye exhibits no discharge. Right conjunctiva is injected. Left conjunctiva is injected. Neck: Neck supple. Cardiovascular: Normal rate, regular rhythm and normal heart sounds. Exam reveals no gallop and no friction rub. No murmur heard. Pulmonary/Chest: Effort normal and breath sounds normal. No accessory muscle usage. No tachypnea. No respiratory distress. He has no decreased breath sounds (CTA, good air movement throughout, no cough noted during exam.). He has no wheezes. He has no rhonchi. He has no rales. Lymphadenopathy: He has no cervical adenopathy. Neurological: He is alert and oriented to person, place, and time. Skin: Skin is warm. He is not diaphoretic. BP 120/60 Pulse 69 Temp 36.4 ?C (97.6 ?F) (Tympanic) Resp 18 Wt 94.3 kg (208 lb) SpO2 96% .Patient presents with: Sore Throat: x 7 days Cough: x 6 days Head Congestion No past medical history on file. No past surgical history on file. ALLERGIES Patient has no known allergies. MEDICATIONS lisinopril (ZESTRIL, PRINIVIL) 20 mg tablet Take 20 mg by mouth once daily. [facility] prescribed pravastatin (PRAVACHOL) 10 mg tablet Take 5 mg by mouth once daily. [facility] prescribed trimethoprim-polymyxin eye drops (POLYTRIM) ophthalmic solution 1 Drop every 6 hours for 10 days. Use in both eyes. guaiFENesin (MUCINEX) 600 mg 12 hr tablet Take 2 tablets by mouth twice daily. benzonatate (TESSALON PERLES) 100 mg capsule Take 1 capsule by mouth three times daily as needed. No family history on file. Social History Tobacco Use - Smoking status: Never Smoker - Smokeless tobacco: Never Used Substance Use Topics - Alcohol use: Yes Alcohol/week: 21.0 oz Types: 14 Cans of Beer (12oz) per week - Drug use: Never ASSESSMENT/PLAN: 1. Viral URI with cough - ICD9: 465.9, ICD10: J06.9, B97.89 (primary diagnosis) - Discussed viral etiology and rationale for treatment. - Symptomatic treatment with prn analgesia - Supportive care with fluids and rest - Follow up in 3-5 days if symptoms persist or sooner if worsening of symptoms - GUAIFENESIN ER 600 MG TABLET, EXTENDED RELEASE 12 HR - BENZONATATE 100 MG CAPSULE 2. Eye irritation - ICD9: 379.99, ICD10: H57.89 - POLYMYXIN B SULFATE 10,000 UNIT-TRIMETHOPRIM 1 MG/ML EYE DROPS The patient is instructed to return or seek emergency treatment if symptoms become worse or with any acute change in condition. The patient verbalizes understanding and is in agreement with plan of care. Katherine Kauffman CNP Referring Provider: SELF [200] Allergies As of Date: 08/16/2018 (No Known Allergies) Date Reviewed: 08/16/2018 Reviewed by: Rosa Cochran - Fully Assessed Reason for Visit: Sore Throat [200] Cmt: x 7 days Cough [28] Cmt: x 6 days Head Congestion [234] Primary Visit Diagnosis:Viral URI with cough [J06.9, B97.89] Other Visit Diagnosis:Eye irritation [H57.89] Order(s):trimethoprim-po lymyxin eye drops (POLYTRIM) ophthalmic solution1 Drop every 6 hours for 10 days. Use in both eyes.Disp: 1 BottleRfl: 0 guaiFENesin (MUCINEX) 600 mg 12 hr tabletTake 2 tablets by mouth twice daily.Disp: 30 tabletRfl: 0 benzonatate (TESSALON PERLES) 100 mg capsuleTake 1 capsule by mouth three times daily as needed.Disp: 40 capsuleRfl: 0 Prescriptions as of 08/16/2018 Sig: LISINOPRIL 20 MG TABLET Take 20 mg by mouth once josef* PRAVASTATIN 10 MG TABLET Take 5 mg by mouth once daily* POLYMYXIN B SULFATE 10,000 UN* 1 Drop every 6 hours for 10 d* GUAIFENESIN ER 600 MG TABLET,* Take 2 tablets by mouth twice* BENZONATATE 100 MG CAPSULE Take 1 capsule by mouth three* Problem List As Of Date: 08/16/2018 (None) Other instructions from your clinician: EXPRESS CARE PATIENT INFO COMMON COLD OVERVIEW The common cold is one of the most frequent illnesses in the [place]. Although most colds are mild and resolve within a short time period, colds cost billions of dollars per year, mostly due to lost time at work and school. COMMON COLD CAUSES The common cold is a group of symptoms caused by one of a large number of viruses. Rhinoviruses cause the greatest number of colds; there are more than 100 different varieties of rhinovirus. Most viruses cause a person to be ill only once. However, due to the large number of viruses, a person can have a cold multiple times throughout his or her lifetime. The average adult experiences two to three colds per year, while children average 8 to 12 colds per year. Colds are transmitted from bsmkpn-wr-fprhfj. Less often, the virus can be transmitted by touching a surface. Direct contact ? People with colds typically carry the cold virus on their hands. The virus may remain alive on the skin and capable of infecting another person for at least two hours. Thus, if a sick person shakes someone's hand and that individual then touches his eye, nose, or mouth, the virus can be transmitted and later infect that person. Infection from particles on surfaces ? Some cold viruses can live on surfaces (such as a counter top, door handle, or phone) for several hours. Inhaling viral particles ? Droplets containing viral particles can be breathed, coughed, or sneezed into the air by a person with a cold. The virus can be transmitted to others if another person is standing close (a few feet) and the droplet touches that person?s eye, nose, or mouth. Covering the mouth while coughing or sneezing greatly reduces this risk. Most cold viruses are not spread by saliva. Thus, kissing itself is not likely to transmit the common cold, but close direct contact can. Colds are not caused by cold climates or being exposed to cold air. However, some types of virus cause more colds during certain seasons (eg, fall and winter versus spring). COMMON COLD SIGNS AND SYMPTOMS The common cold usually causes nasal congestion, runny nose, and sneezing. A sore throat may be present on the first day but usually resolves quickly. If a cough occurs, it generally develops on about the fourth or fifth day of symptoms, typically when congestion and runny nose are usually resolving. COMMON COLD COMPLICATIONS In most cases, colds do not cause serious illness. Most colds last for three to seven days, although many people continue to have symptoms (coughing, sneezing, congestion) for up to two weeks. Some viruses that cause the common cold can also depress the immune system or cause swelling in the lining of the nose or airways; this can, in turn, lead to a new viral infection or bacterial infection. ? One of the more common complications is sinusitis, which is usually caused by viruses and rarely (about 2 percent of the time) by bacteria. However, it can be difficult to distinguish bacterial sinusitis from sinusitis caused by a cold because the signs and symptoms can be similar Having thick or yellow to green-colored nasal discharge does not mean that bacterial sinusitis has developed; discolored nasal discharge is a normal phase of the common cold. ? Lower respiratory infections, such as pneumonia or bronchitis, may develop following a cold. ? Infection of the middle ear, or otitis media, can accompany or follow a cold. ? The influenza virus, which causes the flu, can also cause features similar to those of a cold. However, the flu usually causes other signs and symptoms (fever, body aches) and is more serious than a cold. COMMON COLD TREATMENT There is no specific treatment for the viruses that cause the common cold. Most treatments are aimed at relieving some of the symptoms of the cold, but do not shorten or cure the cold. Antibiotics are not useful for treating the common cold; antibiotics are only used to treat illnesses caused by bacteria, not viruses. The symptoms of a cold will resolve over time, even without any treatment. The following are treatments that may reduce the symptoms caused by the common cold. People with underlying medical conditions and those who use other hfjn-qwa-thtmvnj or prescription medications should speak with their healthcare provider or pharmacist to ensure that it is safe to use these treatments. Runny nose and nasal congestion ? Runny nose and congestion may improve with the use of decongestants. Pseudoephedrine is a decongestant that can improve nasal congestion. Most drugstores in the [place] carry pseudoephedrine behind the counter, so it must be requested from the pharmacist (a prescription is not required). Antihistamines such as diphenhydramine (Benadryl?) may also help, but can cause side effects such as drowsiness and drying of the eyes, nose, and mouth. Nasal inhalers, including ipratropium bromide (Atrovent?, available by prescription) may relieve runny nose and sneezing while cromolyn sodium (NasalCrom?, a non-prescription medicine) may relieve runny nose, cough, and sneezing. Other nasal sprays such an oxymetazoline (Afrin? and others) can also give temporary relief of nasal congestion. However, these sprays should never be used for more than two to three days; use for more than three days use can worsen congestion. Nasal irrigation and saline sprays ? Rinsing the nose with a salt-water (saline) solution is called nasal irrigation or nasal lavage. Saline is also available in a standard nasal spray, although this is not as effective as using larger amounts of water in an irrigation. Nasal irrigation is particularly useful for treating drainage down the back of the throat, sneezing, nasal dryness, and congestion. The treatment helps by rinsing out allergens and irritants from the nose. Saline rinses also clean the nasal lining and can be used before applying sprays containing medications, to get a better effect from the medication. Nasal lavage with warmed saline can be performed as needed, once per day, or twice daily for increased symptoms. Nasal lavage carries few risks when performed correctly. Saline nasal sprays and irrigation kits can be purchased ibfs-uwt-bcjocep. Saline mixes can also be purchased or patients can make their own solution. A variety of devices, including bulb syringes, Neti pots, and bottle sprayers, may be used to perform nasal lavage; instructions for nasal lavage are provided in the table. At least 200 mL (about 3/4 cup) of fluid is recommended for each nostril. Sore throat and headache ? Sore throat and headache are best treated with a mild pain reliever such as acetaminophen (Tylenol?) or a non-steroidal anti-inflammatory agent such as ibuprofen or naproxen (Motrin? or Aleve?). Cough ? Common cough medicine ingredients include guaifenesin and dextromethorphan; these are often combined with other medications in rwsx-xxp-yhcvkgm cold formulas. However, the benefit of cough medicines is likely to be small to non-existent. In clinical trials, cough suppressants were no more effective in reducing the duration or severity of coughing due to cold than a placebo (a non-drug substitute). Antibiotics ? Antibiotics should not be used to treat an uncomplicated common cold. As noted above, colds are caused by viruses. Antibiotics treat bacterial, not viral infections. Alternative treatments ? Heated, humidified air can improve symptoms of nasal congestion and runny nose, and causes few to no side effects. PREVENTION Hand washing is an essential and highly effective way to prevent the spread of infection. Hands should be wet with water and plain soap, and rubbed together for 15 to 30 seconds. Special attention should be paid to the fingernails, between the fingers, and the wrists. Hands should be rinsed thoroughly, and dried with a single use towel. Alcohol-based hand rubs are a good alternative for disinfecting hands if a sink is not available. Hand rubs should be spread over the entire surface of hands, fingers, and wrists until dry, and may be used several times. These rubs can be used repeatedly without skin irritation or loss of effectiveness. Hand rubs are available as a liquid or wipe in small, portable sizes that are easy to carry in a pocket or handbag. When a sink is available, visibly soiled hands should be washed with soap and water. Hands should be washed before preparing food and eating, and after coughing, blowing the nose, or sneezing. While it is not always possible to limit contact with people who may be infected with a cold, touching the eyes, nose, or mouth after direct contact should be avoided when possible. In addition, tissues should be used to cover the mouth when sneezing or coughing. These used tissues should be disposed of promptly. Sneezing/coughing into the sleeve of one's clothing (at the inner elbow) is another means of containing sprays of saliva and secretions and does not contaminate the hands. SUMMARY ? The average adult experiences two to three colds per year, while children average 8 to 12 colds per year. ? Symptoms of the common cold usually include nasal congestion, runny nose, and sneezing. They typically last for three to seven days, although many people have symptoms (coughing, sneezing, congestion) for up to two weeks. ? People with colds typically carry the cold virus on their hands, where it can infect another person for at least two hours. Some cold viruses can live on surfaces (such as a counter top, door handle, or phone) for several hours. Droplets containing viral particles can be breathed, coughed, or sneezed into the air. ? There is no specific treatment for colds. Treatment may reduce some of the symptoms of the cold, but do not shorten or cure the cold. Antibiotics are not useful for treating the common cold. Hand washing can prevent the spread of infection. Hands should be wet with water and plain soap, and rubbed together for 15 to 30 seconds. Alcohol-based hand rubs are a good alternative for disinfecting hands if a sink is not available Prescriptions ordered this encounter Disp Refills Start End POLYMYXIN B SULFATE 10,000 UNIT-TRIM* 1 Jairo* 0 08/16/2018 08/26/2018 Route: OTHER Si Drop every 6 hours for 10 days. Use in both eyes. GUAIFENESIN ER 600 MG TABLET, EXTEND* 30 t* 0 08/16/2018 Route: ORAL Sig: Take 2 tablets by mouth twice daily. BENZONATATE 100 MG CAPSULE 40 c* 0 08/16/2018 Route: ORAL Sig: Take 1 capsule by mouth three times daily as needed. Encounter Status:Closed by KATHERINE KAUFFMAN CNP on 08/16/18 Normal [facility] PROGRESSon 08-16-2018 Protein mass conc HNO ID: [id number] Author: Katherine Kauffman Service: ? Author Type: Nurse Practitioner Type: Progress Notes Filed: 08/16/2018 1:16 PM Note Text: Subjective HPI Pt presents with c/o sore throat, cough and eye congestion x 1 week. Sx began with sneezing which resolved. was dx with influenza over a week ago. He never had fever, chills, myalgias. Cough is frequent, moist, nonproductive. Denies chills, myalgias, dyspnea, chest tightness, wheezing, increased WOB, coughing fits. Received influenza vaccine this season, his did not. Has not taken any OTC medications. Review of Systems Constitutional: Negative for chills and fever. HENT: Positive for congestion and sore throat (post nasal drip). Negative for ear discharge, ear pain, sinus pain and tinnitus. Respiratory: Positive for cough. Negative for sputum production, shortness of breath and wheezing. Cardiovascular: Negative for chest pain. Skin: Negative for rash. Neurological: Negative for headaches. Objective Physical Exam Constitutional: He is oriented to person, place, and time and well-developed, well-nourished, and in no distress. No distress. HENT: Head: Normocephalic. Right Ear: Hearing, tympanic membrane, external ear and ear canal normal. Left Ear: Hearing, tympanic membrane, external ear and ear canal normal. Nose: Rhinorrhea present. Right sinus exhibits no maxillary sinus tenderness and no frontal sinus tenderness. Left sinus exhibits no maxillary sinus tenderness and no frontal sinus tenderness. Mouth/Throat: Uvula is midline, oropharynx is clear and moist and mucous membranes are normal. No oropharyngeal exudate, posterior oropharyngeal edema, posterior oropharyngeal erythema (clear drainage) or tonsillar abscesses. Eyes: Pupils are equal, round, and reactive to light. Right eye exhibits no discharge. Left eye exhibits no discharge. Right conjunctiva is injected. Left conjunctiva is injected. Neck: Neck supple. Cardiovascular: Normal rate, regular rhythm and normal heart sounds. Exam reveals no gallop and no friction rub. No murmur heard. Pulmonary/Chest: Effort normal and breath sounds normal. No accessory muscle usage. No tachypnea. No respiratory distress. He has no decreased breath sounds (CTA, good air movement throughout, no cough noted during exam.). He has no wheezes. He has no rhonchi. He has no rales. Lymphadenopathy: He has no cervical adenopathy. Neurological: He is alert and oriented to person, place, and time. Skin: Skin is warm. He is not diaphoretic. BP 120/60 Pulse 69 Temp 36.4 ?C (97.6 ?F) (Tympanic) Resp 18 Wt 94.3 kg (208 lb) SpO2 96% .Patient presents with: Sore Throat: x 7 days Cough: x 6 days Head Congestion No past medical history on file. No past surgical history on file. ALLERGIES Patient has no known allergies. MEDICATIONS lisinopril (ZESTRIL, PRINIVIL) 20 mg tablet Take 20 mg by mouth once daily. [facility] prescribed pravastatin (PRAVACHOL) 10 mg tablet Take 5 mg by mouth once daily. [facility] prescribed trimethoprim-polymyxin eye drops (POLYTRIM) ophthalmic solution 1 Drop every 6 hours for 10 days. Use in both eyes. guaiFENesin (MUCINEX) 600 mg 12 hr tablet Take 2 tablets by mouth twice daily. benzonatate (TESSALON PERLES) 100 mg capsule Take 1 capsule by mouth three times daily as needed. No family history on file. Social History Tobacco Use - Smoking status: Never Smoker - Smokeless tobacco: Never Used Substance Use Topics - Alcohol use: Yes Alcohol/week: 21.0 oz Types: 14 Cans of Beer (12oz) per week - Drug use: Never ASSESSMENT/PLAN: 1. Viral URI with cough - ICD9: 465.9, ICD10: J06.9, B97.89 (primary diagnosis) - Discussed viral etiology and rationale for treatment. - Symptomatic treatment with prn analgesia - Supportive care with fluids and rest - Follow up in 3-5 days if symptoms persist or sooner if worsening of symptoms - GUAIFENESIN ER 600 MG TABLET, EXTENDED RELEASE 12 HR - BENZONATATE 100 MG CAPSULE 2. Eye irritation - ICD9: 379.99, ICD10: H57.89 - POLYMYXIN B SULFATE 10,000 UNIT-TRIMETHOPRIM 1 MG/ML EYE DROPS The patient is instructed to return or seek emergency treatment if symptoms become worse or with any acute change in condition. The patient verbalizes understanding and is in agreement with plan of care. Katherine Kauffman CNP Normal [facility] Vital Signs Date Time Vital Sign Value Performing Clinician Marie hines 12-29-2024 11:32-0400 Body height 180.34 cm [facility] 12-29-2024 11:32-0400 Body mass index (BMI) [Ratio] 26.9 kg/m2 [facility] 12-29-2024 11:32-0400 Body weight 87.54 kg [facility] 12-29-2024 11:32-0400 Diastolic blood pressure 76 mm[Hg] [facility] 12-29-2024 11:32-0400 Heart rate 94 /min [facility] 12-29-2024 11:32-0400 Respiratory rate 18 /min [facility] 12-29-2024 11:32-0400 SaO2% (BldA) [Mass fraction] 98 % [facility] 12-29-2024 11:32-0400 Systolic blood pressure 129 mm[Hg] [facility] 07-19-2023 14:50-0400 Body height 180.34 cm Out [facility] 07-19-2023 14:50-0400 Body mass index (BMI) [Ratio] 25.7 kg/m2 Out [facility] 07-19-2023 14:50-0400 Body weight 83.91 kg Out [facility] 07-19-2023 14:50-0400 Diastolic blood pressure 80 mm[Hg] Out [facility] 07-19-2023 14:50-0400 Heart rate 67 /min Out [facility] 07-19-2023 14:50-0400 Respiratory rate 18 /min Out [facility] 07-19-2023 14:50-0400 Systolic blood pressure 145 mm[Hg] Out [facility] Encounters Encounter Date Encounter Type Care Provider Facility Start: 12-29-2024 End: 12-29-2024 ambulatory [facility] Start: 12-29-2024 End: 12-29-2024 Patient encounter procedure Jonathan VELAZQUEZ [facility] Work Phone: Start: 05-19-2024 End: 05-19-2024 ambulatory Colin Lemon NP Facility:[facility] Start: 04-08-2024 Encounter for other preprocedural examination Chris Coronado [facility] Start: 04-06-2024 End: 04-07-2024 ambulatory Rashad Shields Facility:[facility] Start: 11-14-2023 End: 11-14-2023 ambulatory [place] Doctor Facility:[facility] Start: 08-29-2023 Encounter for preprocedural cardiovascular examination Daren Magaña [facility] Start: 08-27-2023 Non-patient / Non-visit [place] [facility] Work Phone: Start: 08-27-2023 ambulatory Lidia Alvarado NP Facili ty:[facility] Start: 08-26-2023 Non-patient / Non-visit [place] [facility] Work Phone: Start: 08-26-2023 ambulatory Lidia Alvarado NP Facili ty:[facility] Start: 08-26-2023 ambulatory [facility] Start: 08-26-2023 Non-patient / Non-visit [place] [facility] Start: 08-26-2023 End: 08-26-2023 ambulatory [place] Doctor [facility] Work Phone: Start: 08-26-2023 End: 08-26-2023 Patient encounter procedure [place] [facility] Work Phone: Start: 08-26-2023 End: 08-26-2023 ambulatory [facility] Facility:[facility] Start: 07-19-2023 End: 07-19-2023 Admission to same day surgery center [facility] Start: 07-19-2023 End: 07-19-2023 Patient encounter procedure [place] Doctor [facility] Work Phone: Start: 07-19-2023 End: 07-19-2023 ambulatory [place] Doctor Facility:[facility] Start: 07-01-2023 Patient encounter status [place] Do ctor [facility] Start: 07-01-2023 Preoperative [facility] Procedures Date Procedure Procedure Detail Performing Clinician Start: 08-26-2023 Cardiovascular stres s test using pharmacologic stress agent Out [facility] Doctor Plan of Treatment Date Care Activity Detail Author 24 Hour ECG [facility] Basic metabolic 2008 panel with ionized calcium - Serum or Plasma [facility] CBC W Auto Differential panel - Blood [facility] Magnesium measurement [facility] Thyroid stimulating hormone measurement [facility] Payers Date Payer Category Payer Self-pay 2023 Medicare [id number] 2023 Unknown [id number] 2012 Medicare [id number] Unknown [id number] 2.16.8 [id number] Unknown [id number] 2.16.8 [id number] Unknown [id number] 2.16.8 [id number] Unknown [id number] 2.16.8 [id number] Unknown [id number] 2.16.8 [id number] Unknown [id number] 2.16.8 [id number] Unknown [id number] 2.16.8 [id number] Unknown [id number] 2.16.8 [id number] Unknown [id number] 2.16.8 [id number] Social History Date Type Detail Facility Start: 07-19-2023 Tobacco smoking stat [facility] Unknown if ever smoked [facility] Start: 1945 Sex Assigned At Male [facility] Start: 03-12-2024 [facility] Medical Equipment Procedure Code Equipment Code Equipment Origin al Text Equipment Identifier Dates Minimally invasive total replacement of hip joint by anterior approach ([id number]) Ceramic femoral head prosthesis [id number] FDA Start: 04-06-2024 Minimally invasive total replacement of hip joint by anterior approach ([id number]) Non-constrained polyethylene acetabular liner ()[id number] FDA Start: 04-06-2024 Minimally invasive total replacement of hip joint by anterior approach ([id number]) Acetabular shell [id number] FDA Start: 04-06-2024 Minimally invasive total replacement of hip joint by anterior approach Coated hip femur prosthesis, modular [id number] [facility] Start: 04-06-2024 Clinical Note 04-01-2024 Note Date & Type Note Facility 04-01-2024 [facility] Medical Records Department [address] [place] [address] History Physical Exam 04/01/24 1235 MR#: [id number] Acct: [id number] Name: GE CRUZ Rep #: [id number] : 1945 78 From: Omid VELAZQUEZ PA-C PCP: [facility] Status:[facility] Location: [place] [address] History and Physical History and Physical Patient Name: Ge Cruz : 1945From:??? OMID CORREA PA-C DATE OF PRE-OPERATIVE EXAM: 04/01/2024 DATE OF SURGERY:??? 04/06/2024 SCHEDULED PROCEDURE:??? Direct anterior left total hip arthroplasty HISTORY OF PRESENT ILLNESS: Preoperative history and physical exam was performed on April 01, 2024.??? This is a 78-year-old male who has had ongoing pain with his left hip since 2018.??? Pain is located in the left groin and anterior part of his thigh.??? Patient denies any numbness and tingling.??? His pain has been intermittent.??? Pain is increased with walking and going up and down stairs.??? Patient has difficulty with activities of daily living including putting on his socks and shoes.??? He has been using a cane.??? Patient states stairs are challenging due to the pain.??? He has difficulty getting in and out of cars.??? He does have history of a previous femur fracture in the 1970s which initially was treated with delmer and bone grafting.??? The hardware was removed that same year of surgery.??? Patient has tried conservative measures including Tylenol and Advil with no relief.??? 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 Cardiology recommended stopping the Eliquis 2 days prior to surgery.??? He has medical history pertinent for atrial fibrillation, hypertension, hypercholesterolemia, prediabetes.??? He denies past history of DVT or pulmonary embolism.??? No recent chest pain, shortness of breath, fevers chills, or recent infections.??? After failing conservative measures and discussing all treatment options was Dr. Colin Sifuentes, the patient does wish to proceed with a direct anterior left total hip arthroplasty. REVIEW OF SYSTEMS: Review Of Systems: Constitutional: Denies change in appetite, fever and weight change. Cardiovasular: Reports irregular heartbeat, but denies chest pain and heart murmur. Respiratory: Denies cough, pneumonia, shortness of breath, tuberculosis and wheezing. Gastrointestinal: Denies constipation, diarrhea, heartburn, nausea, rectal itching, bloody stools and vomiting. Musculoskeletal: Reports gait disturbance, pain, trouble walking and weakness, but denies leg swelling. Skin: Denies Raynaud's, history of shingles and tattoo. Neurological: Denies ambulatory dysfunction, dizziness, numbness/tingling and tremor. Psychiatric: Denies anxiety, insomnia and stress. Hematologic/Lymphatic: Denies anemia, bleeding/bruising tendency and past transfusion. Reviewed and updated. PAST MEDICAL HISTORY: Advance Care Plan: No Advance Directives Effective Date: 10/16/2023 Past Medical History: Medical Problems: AFib, Arthritis, High Blood Pressure, Hypercholesterolemia prediabetes - history of lumbar degenerative disc disease Accidents: Fracture - LT FEMUR 1969 Surgical Hx: Cataracts - BRENDAN Open Reduction Internal Fixation left femur + hardware removal later - (1969) Anesthesia Complications: Demerol - Maybe Assistive Devices: Cane Reviewed and updated. SOCIAL HISTORY: Social History: Marital: .Occupation: Retired.Work Status: Retired.Hand Dominance: Right-handed. Personal Habits:??? Cigarette Use: Former.Smokeless Tobacco: Never Used Smokeless Tobacco.E-Cigarette Use: Never used.Alcohol: Occasionally.Drug Use: Denies Use.Enjoy Exercising: Exercises 1-3 X/Week. Reviewed and updated. VITALS: Ht: 70.5 Wt: 186lb Wt k.370 BMI: 26.3 BP: 128/80 Pulse: 71 Resp: 17 T: 97.6 T: 36.4C Pain Level: 4 O2SatR: 100 ALLERGIES: Meperidine Demerol MEDICATIONS: Metoprolol Succinate ER 50 mg 1 by mouth every day, Amlodipine Besylate 5 mg 1 by mouth every day, Lisinopril 20 mg 1 by mouth every day, Rosuvastatin Calcium 10 mg on saturday, saturday, and saturday, Vitamin D (Cholecalciferol) 50 mcg (1999) 1 tab, 1x/day, Multivitamin??? take one(1) tablet daily., Eliquis 5 mg twice a day PRE-OP EXAM: General appearance:NORMAL? Other: Eyes: Conjunctivae and lids: NORMAL??? Pupils: ERR Ears, Nose, Mouth, and Throat: NORMAL??? Other: Inspection of lips, teeth and gums: NORMAL? Other: Neck: Examination of neck: no masses noted. Respiratory: Assessment of respiratory effort: NORMAL? Other: ? Auscultation of lungs: clear to auscultation no wheezes, rhonchi or rales. Cardiovascular:??? Auscultation of heart: Irregular irregular rhythm consistent with atrial fibrillation PHY (more content not included)... [facility] Evaluation note Note Date & Type Note Facility Evaluation note Diagnosis Onset Date Encounter for pre-operative cardiovascular clearance acute Essential (primary) hypertension acute New onset atrial fibrillation acute [facility] Work Phone: Evaluation note Note Date & Type Note Facility Evaluation note Diagnosis Onset Date Resolution Atrial fibrillation acute Septe 2024 12:52pm Essential (primary) hypertension chronic December 29 12:52pm [facility] Work Phone: Reason for referral (narrative) Note Date & Type Note Facility Reason for referral (narrative) No reason for referral information available [facility] Work Phone: Summary Purpose Family History Relationship Condition Age at Onset Recorded Date/T utlio brother Cerebrovascular accident (CVA) Unknown Advance Directives Advance Directive Response Recorded Date/ Time Living Will No August 02, 2013 2:56pm Power of Herbologist No August 02 4 2:56pm Advance Directive Response Recorded Date/ Time Living Will No August 02, 2013 2:56pm Do you have a Healthcare Power of Herbologist? No August 02, 2013 2:56pm Chief Complaint and Reason for Visit Chief Complaint SURG CLEARANCE / ISIAH B ([place]) AFIB Amb Documentation Amb Documentation Reason for Visit Encounter for pre-op erative cardiovascular clearance Essential (primary) hypertension New onset atrial fibrillation Chief Complaint Admit Date 1 Y FU/MOVED FROM [facility] December 29 12:52pm Reason for Visit Admit Date Atrial fibrillation December 29, 2024 12:52pm Essential (primary) hypertension Septemb 2024 12:52pm Additional Source Comments (unrecognized sect ion and content) No Status Records FoundNo Status Records Found INFORMATION SOURCE (unrecogn ized section and content) DATE CREATED AUTHOR 09/21/2018 [facility] DATE CREATED AUTHOR AUTHOR'S ORGANIZ ATION 05/20/2024 [facility] Care Teams (unrecognized sec tion and content) Team Status: Active Member Role Status Dates Out of Town Doctor Family Provider Active [facility] Primary Care Provider Active Team Status: Inactive Member Role Status Dates Out of [facility] Doctor Primary Care Provider, Referring Pr deidreer Active Dr. Daren Magaña MD Attending Provider Active Team Status: Active Member Role Status Dates [facility] Primary Care Provider Active Dr. Daren Magaña MD Attending Provider Active Team Status: Active Member Role Status Dates [facility] Primary Care Provider Active Lidia Alvarado [employer]AR[employer]OBE IMAGE CONSULTANT, [employer] IMAGE CONSULTANT-C Attending Provider Active Team Status: Inactive Member Role Status Dates Dr. Daren Magaña MD Attending Provider, Referring Pro vider Active [facility] Primary Care Provider Active Team Status: Active Member Role/Relationship Status Dates [facility] Primary Care Provider Active Team Status: Inactive Member Role/Relationship Status Dates [facility] Primary Care Provider Active Start: December 29, 2024 End: December 29, 2024 [facility] Referring Provider Active Start: Se pt2024 End: December 29, 2024 MARCUS Love Attending Provider Active St art: December 29, 2024 End: December 29, 2024 Goals (unrecognized section and content) Goals may be documented in a n alternate sectionGoals may be documented in an alternate section FOR RECORDS PERTAINING TO PATIENTS WHO ARE OR HAVE BEEN ENROLLED IN A CHEMICAL DEPENDENCY/SUBSTANCEABUSE PROGRAM, SOME INFORMATION MAY BE OMITTED. This clinical summary was aggregated from multiple sources. Caution should be exercised in using it in the provision of clinical care. This summary normalizes information from multiple sources, and as a consequence, information in this document may materially change the coding, format and clinical context of patient data. In addition, data may be omitted in some cases. CLINICAL DECISIONS SHOULD BE BASED ON THE PRIMARY CLINICAL RECORDS. [facility] [employer] [facility]. provides no warranty or guarantee of the accuracy or completeness of information in this document.
== END | disposition home or self-care (01) ==
PROVIDERS: Referring Provider Student in an Organized Health Care Education/Training Program; Visit Provider Student in an Organized Health Care Education/Training Program
DX: I48.21 Permanent atrial fibrillation (principal)
CPT/HCPCS: 36415; 80048; 83735; 84443; 85025

== ENCOUNTER → 2025-01-07 | Outpatient (CLI) | payer OTHER, SELFPAY | END | disposition home or self-care (01) | PROVIDERS: Referring Provider Student in an Organized Health Care Education/Training Program; Visit Provider Student in an Organized Health Care Education/Training Program | DX: I48.91 Unspecified atrial fibrillation (principal) | CPT/HCPCS: 93225; 93226 ==